=== PATIENT | male | born 1935 | race Caucasian/White ===

== ENCOUNTER 2019-11-17 05:42 | Outpatient (CLI) | payer MEDICARE, SELFPAY ==
[2019-11-17 15:31] LABS: SARS-CoV-2 RNA PCR Negative
== END 2019-11-17 05:43 | disposition home or self-care (01) ==
LOC: ANHCOVIDDT 05:42
PROVIDERS: PCP Internal Medicine; Visit Provider Specialist
DX: Z01.818 Encounter for other preprocedural examination (principal); Z11.59 Encounter for screening for other viral diseases
CPT/HCPCS: 87635; C9803; U0003

== ENCOUNTER 2019-11-19 05:14 | Day surgery (SDC) | payer MEDICARE, SELFPAY ==
[2019-11-17 17:00] VITALS: BMI 30.2
[2019-11-19] VITALS (17 sets, daily range): BP systolic 125–169; BP diastolic 64–117; PULSE 65–81; RESP 15–18; TEMP 36.6–36.9; O2SAT 97–100; BMI 29.8
--- NOTE | ~2019-11-19 | XR_ITS ---
XR chest 1V portable DATE: 11/19/2019 12:18 INDICATION: Pacemaker insertion TECHNIQUE: Portable AP chest on 11/19/2019 at 1209 hours COMPARISON: None FINDINGS: Left-sided pacemaker device with leads overlying right atrium and right ventricle. There is no evidence of pneumothorax. No pulmonary infiltrate or consolidation, pleural effusion or pulmonary vascular congestion or pneumothorax. Heart size is within normal limits. Is aortic calcification. Postoperative change including sternal wire sutures. IMPRESSION: Left dual-lead pacemaker device placement; no pneumothorax Reviewed, dictated and finalized at location A.
--- NOTE | ~2019-11-19 | XR_ITS ---
EXAMINATION: XR chest 2V DATE: 11/20/2019 10:55 INDICATION: Pacer placement. TECHNIQUE: Frontal and lateral views of the chest were obtained. COMPARISON: Chest single view 11/19/2019 FINDINGS: There is no pneumonia, pleural effusion, or pneumothorax. The heart size is normal. There i s a prominent left paracardial fat pad. Median sternotomy wires and mediastinal surgical clips are se en, likely from prior coronary artery bypass grafting. There is a left chest wall pacer with leads in the right atrium and right ventricle. IMPRESSION: 1. No acute cardiopulmonary disease. Reviewed, dictated and finalized at location A.
--- NOTE | 2019-11-19 08:00 | ECG_ITS ---
Measurements Intervals [place] Rate: 66 P: 45 [place]: 203 QRS: 15 QRSD: 88 T: -11 QT: 425 QTc: 446 Interpretive Statements SINUS RHYTHM BORDERLINE AV CONDUCTION DELAY CONSIDER INFERIOR INFARCT, AGE INDETERMINATE BORDERLINE ST ABNORMALITY- LATERAL LEADS ABNORMAL ECG Electronically Signed On 11-19-2019 11:38:31 CDT by Lito Solorzano D.O.
[2019-11-19 09:04] LABS: Basophils Percent Auto 0.5 % (0.2-1.2); Eosinophils Absolute Auto 0.5 K/mm3 (0-0.3); Eosinophils Percent Auto 7.4 % (0-4.4); Hematocrit 40.2 % (42.0-52.0); Hemoglobin 12.3 g/dL (14.0-18.0); Immature Granulocyte Absolute 0.03 K/mm3 (0.00-0.031); Immature Granulocyte Percent A 0.5 % (0-0.5); Lymphocytes Percent Auto 16.1 % (18.3-44.2); Mean Corpuscular HGB Conc 30.6 g/dl (32-36); Mean Corpuscular Hemoglobin 27.5 pg (26-34); Mean Corpuscular Volume 89.9 fl (80-100); Mean Platelet Volume 8.7 fl (7.4-10.4); Monocytes Absolute Auto 0.8 K/mm3 (0.1-0.6); Monocytes Percent Auto 12.1 % (2.6-8.5); Neutrophils Percent Auto 63.4 % (45.5-73.1); Platelet Count Result 263 k/mm3 (150-375); Red Blood Count 4.47 M/mm3 (4.6-6.20); Red Cell Distribution Width 17.5 % (11.5-14.5); White Blood Count 6.2 K/mm3 (4.5-10.0)
[2019-11-19 09:13] LABS: INR 0.9
[2019-11-19 09:15] LABS: Blood Urea Nitrogen 34 mg/dL (9-20); Calcium 9.5 mg/dL (8.4-10.2); Carbon Dioxide 24 mmol/L (22-30); Chloride 107 mmol/L (98-107); Estimated CRCL calculation 26 ml/min; Estimated Glomerular Filt Rate 26; Glucose 121 mg/dL (75-110); Potassium 4.6 mmol/L (3.4-5.0); Sodium 142 mmol/L (137-145)
--- NOTE | 2019-11-19 09:33 | WPDMODSED ---
Moderate Sedation Note-Pt Data Patient Data Diagnosis: Second-degree AV block Coronary artery disease recent CABG Present Complaint: No complaints Procedure to be performed/Plan: This is an 83-year-old patient with a history of coronary disease who underwent coronary bypass grafting for revascularization in August of this year. He did have some postop atrial fibrillation which was resolved after treatment with amiodarone. To follow up on this as an outpatient a 48 hour Holter monitor was done which demonstrated evidence of episodes of second-degree AV block Mobitz type 2 with asystolic pauses of as high as 3.3 seconds. Because of this implantation of a pacemaker device was recommended. Patient is admitted today electively for that procedure Allergies Allergy/AdvReac Type Severity Reaction Status Date / Time No Known Allergies Allergy Verified 11/17/19 17:03 Home Medications Medication Instructions Recorded Confirmed Type allopurinol 300 mg tablet 300 mg PO DAILY 05/20/19 11/17/19 History levothyroxine 50 mcg tablet 50 mcg PO DAILY 05/20/19 11/17/19 History losartan 100 mg tablet 100 mg PO DAILY 05/20/19 11/17/19 History omega-3 1,050 [id number]-drm-[id number]-dpa-fish 1 cap PO DAILY 05/20/19 11/17/19 History oil 1,200 mg capsule rosuvastatin 5 mg tablet 10 mg PO DAILY 05/20/19 11/17/19 History amlodipine 10 mg PO DAILY 11/17/19 11/17/19 History aspirin 81 mg PO DAILY 11/17/19 11/17/19 History metoprolol tartrate 75 mg PO BID 11/17/19 11/17/19 History tramadol 50 mg PO Q6H PRN 11/17/19 11/17/19 History vitamins A,C,T-vdva-wctcqc 2 tablet PO BID 11/17/19 11/17/19 History [[employer] AREDS] Current Medications: Active Medications Cefazolin Sodium (Ancef 1 Gm/D5w 50 Ml Pm) 1 gm in 50 mls @ 100 mls/hr IVPB ONCE ONE Stop: 11/19/19 09:59 Sedation/Anesthesia: No previous sedation/anesthesia problems (including family history). [facility] Past Medical History Medical History (System 06/03/19 @ 16:34 by Maria Del Carmen Sewell) Gout High cholesterol History of stroke History of TIA (transient ischemic attack) Hypertension Surgical History Surgical History (System 06/03/19 @ 16:34 by Maria Del Carmen Sewell) History of cataract surgery History of hip replacement History of pterygium excision Social History Social History (System 06/03/19 @ 16:34 by Maria Del Carmen Sewell) Gender identity (if verbalized by the patient): Male Mod Sed Physical Exam Physical Exam Pre Procedural Exam: Normal: Appearance, Nose, Neck, Throat, Airway, Lungs, Heart Size, Heart Rate, Heart Rhythm, Neuro Exam and Extremities Hours since solid foods: 12 Hours since liquid intake: 12 Internal Medicine - PN: Obj Da Vital Signs Vital Signs: Vital Signs - 24 hr 11/19/19 09:00 Temperature 36.6 C Pulse Rate 65 Respiratory Rate 15 Blood Pressure 166/67 H Pulse Oximetry 99 Meds/Results Medications: Active Medications Generic Name Dose Route Start Last Admin Trade Name Freq PRN Reason Stop Dose Admin Cefazolin Sodium 1 gm in 50 mls @ 100 mls/hr 11/19/19 09:30 Ancef 1 Gm/D5w 50 Ml Pm IVPB 11/19/19 09:59 ONCE ONE Labs CBC & Chem 7: 11/19/19 08:56 11/19/19 08:56 Labs: Laboratory Results - last 24 hr 11/19/19 11/19/19 11/19/19 08:56 08:56 08:56 WBC 6.2 RBC 4.47 L Hgb 12.3 L D Hct 40.2 L MCV 89.9 MCH 27.5 MCHC 30.6 L RDW 17.5 H Plt Count 263 MPV 8.7 Immature Gran % (Auto) 0.5 Neut % (Auto) 63.4 Lymph % (Auto) 16.1 L [place] % (Auto) 12.1 H Eos % (Auto) 7.4 H Baso % (Auto) 0.5 Lymph # (Auto) 1.00 [place] # (Auto) 0.8 H Eos # (Auto) 0.5 H Baso # (Auto) 0.0 Abs Immat Gran (auto) 0.03 Absolute Neuts (auto) 4.0 Absolute Nucleated RBC 0.0 Nucleated RBC % 0.0 PT 12.0 INR 0.9 Sodium 142 Potassium 4.6 Chloride 107 Carbon Dioxide 24 BUN 34 H Creatinine 2.40 H Estim Creat Clear Calc 26 E
--- NOTE | 2019-11-19 09:39 | SUR.PREOP ---
DR. SUMMERS AT BEDSIDE SPEAKING TO PT.
--- NOTE | 2019-11-19 11:41 | ECG_ITS ---
Measurements Intervals [place] Rate: 68 P: 54 [place]: 215 QRS: 19 QRSD: 90 T: 5 QT: 414 QTc: 441 Interpretive Statements SINUS RHYTHM WITH FIRST DEGREE AV BLOCK CONSIDER INFERIOR INFARCT, AGE INDETERMINATE BORDERLINE ST ABNORMALITY- LATERAL LEADS ABNORMAL ECG Electronically Signed On 11-19-2019 12:33:55 CDT by Lito Solorzano D.O.
--- NOTE | 2019-11-19 11:45 | WPDCARDPROC ---
Cardiac Cath Procedure Note Date of procedure:: 11/19/19 Performing physician:: Amadeo Cat MD Indication:: second-degree AV block with asystolic pauses of greater than 2nd Brief clinical history:: this is an 83-year-old patient with coronary artery disease who underwent surgical revascularization in August. A Holter monitor was done recently to provide follow-up on a history of postop AFib. There was no atrial fib but there was evidence second-degree AV block with asystolic pauses of up to 3.3 seconds. Procedure Procedure performed:: Implantation of permanent pacemaker device Sedation/Medication given:: fentanyl 100 mg Versed 2 mg case start time 1025 case end time 11:31 a.m. Access site:: left subclavian vein Estimated blood loss:: 15-20 cc Procedure note:: patient was brought to the cardiac catheterization lab in the postabsorptive state the left anterior chest wall was prepped and draped in the usual fashion. Anesthesia was provided with 1% lidocaine inferior to the clavicle. An incision was then made about an inch below the clavicle from the midclavicular line to the deltopectoral groove. Using sharp and blunt dissection the subcutaneous tissue was and electrocautery was used to provide cutaneous hemostasis. Using blunt dissection a pacemaker pocket was created along the fascial plane inferior to the incision. This was then packed with an antibiotic soaked 4 x 4. Following this attention was turned to venous access. Despite multiple attempts the left subclavian vein was not successfully punctured and so I performed a venogram from the left antecubital vein IV to determine venous location. Following this the vein was punctured and guidewires were placed into the venous circulation and under fluoroscopic visualization to the level the right atrium. Following this two pacemaker SafeSheath were used to access the vein over each wire and then the pacemaker leads detailed below were advanced into the venous circulation to the level of the atrium the safe sheaths were then peeled back. Attention was then turned to the ventricular lead straight stylet was withdrawn and a 3 cc syringe was used to fashion a J stylet tip which was used to steer the lead through the RV into the pulmonary artery position. This was then replaced with a straight stylet lead was withdrawn and placed into the right ventricular apical position. The fixation screw was deployed and the lead was then tested using analyzer with appropriate pacing and sensing perform is being demonstrated. A 10 volts stimulation showed no evidence of extracardiac stimulation. Following this attention was turned to the atrial lead. The straight stylet was withdrawn and replaced with a preformed J tipped stylet. This was placed into the right atrial appendage position. The this a fixation screw was then deployed and upon withdrawal of the stylet lead was fixed into position. This lead was then tested using the analyzer with appropriate pacing and sensing performance being demonstrated. Ten a 10 volts stimulus also showed no sign of extracardiac stimulation. Following this the sheaths were sutured to the base of the pocket using the suture sleeves and 2 0 silk ties. The retained sponge was removed from the pocket and the pocket was irrigated with antibiotic infused saline. The pacemaker device was then connected to the leads and secured using the supplied torque wrench. Following this the entire assembly was placed into the pocket and this was then closed in layers using 3 0 Vicryl in interrupted fashion for the subcutaneous tissue in 4 0 Vicryl in a running subcuticular fashion for the skin. The wound was dressed with an Aquacel dressing. The patient was taken to the holding area for recovery the left arm was placed in an immobilizer. Postop antibiotics chest x-ray and ECG were ordered. Findings:: Patient received a [employer] dual-chamber pacemaker model Edora 8 -Gabby ser
--- NOTE | 2019-11-19 11:50 | SUR.PHASEII ---
BEGIN PHASE II RECOVERY. RETURNS S/P DC PPM INSERTION L. UPPER CHEST W/ DR. SUMMERS VIA STRETCHER TO DREDGE OPERATOR 6. AWAKE AND ALERT ON ARRIVAL. DENIES CP OR SOB. MONITOR SHOWS A-PACED/SR. L. UPPER CHEST W/ C/D/I AQUACELL DRESSING. NO BLEEDING, SWELLING OR REDNESS NOTED. REVIEWED L. ARM MOVEMENT RESTRICTIONS S/P PPM AND BEDREST ORDERED X 24 HRS. URINAL GIVEN TO VOID. POST PROCEDURE EKG IN PROGRESS. WILL CONTINUE TO MONITOR.
--- NOTE | 2019-11-19 12:50 | SUR.PHASEII ---
POST PPM PCXR COMPLETED. NO NEW CHANGES. DRESSING L. UPPER CHEST REMAINS C/D/I. SLING APPLIED TO L. ARM TO SUPPORT ARM. L. RADIAL PULSE WEAK, L. ULNAR PULSE STRONG. REPORTS HAS HAD NUMBNESS IN LAST 2 FINGERS ON L. HAND POST CABG IN AUG 2019. REPORTS SENSATION, PULSES AND MOVEMENT L. HAND IS HIS NORMAL POST CABG. END PHASE II. SEE PCS FOR FURTHER DOCUMENTATION. PT. TO ENTER EXTENDED RECOVERY POST OUTPT. PROCEDURE PER ORDER FROM DR. SUMMERS.
--- NOTE | 2019-11-19 12:51 | ADMGEN ---
This patient, Jame Ward Jr., was admitted to EXTENDED RECOVERY POST OUTPATIENT PPM INSERTION [facility]. REMAINS IN CHIEF SUSTAINABILITY OFFICER 6 S/P PPM INSERTION. Patient/family oriented to hospital policies and general routines including ID bracelet, bed and alarms, visiting hours, pain management, procedures, bathroom and other care routines, personal items, smoking policy, room service/diet, and visiting hours. Information on how to activate the Rapid Response Team has been discussed. Patient/Family are encouraged to report perceived risks to care and to ask questions if they do not understand what they are told or what they should do.
[2019-11-19] MEDS: SODIUM CHLORIDE 0.9% IV 1,000 ML 50 ML IV CONT (17:51)
[2019-11-19] MEDS: OPTI-GEN TAB 2 TABLET PO (18:37)
[2019-11-19] MEDS: METOPROLOL TARTRATE 25 MG TABLET 75 MG PO (20:12)
[2019-11-20] VITALS (7 sets, daily range): BP systolic 154–178; BP diastolic 76–89; PULSE 70–77; RESP 14; O2SAT 100
[2019-11-20] MEDS: AMLODIPINE BESYLATE 5 MG TABLET 10 MG PO (06:46)
[2019-11-20] MEDS: OPTI-GEN TAB 2 TABLET PO (06:46)
[2019-11-20] MEDS: METOPROLOL TARTRATE 25 MG TABLET 75 MG PO (06:46)
[2019-11-20] MEDS: ROSUVASTATIN 5 MG TABLET 10 MG PO (06:46)
[2019-11-20] MEDS: LOSARTAN POTASSIUM 100 MG TABLET PO (06:47)
[2019-11-20] MEDS: ASPIRIN 81 MG CHEWABLE TABLET PO (06:47)
[2019-11-20] MEDS: OMEGA 3 POLYUNSAT FATTY ACIDS 1 GM CAP PO (06:47)
[2019-11-20] MEDS: allopurinoL 300 MG TABLET PO (06:47)
[2019-11-20] MEDS: LEVOTHYROXINE SODIUM 50 MCG TABLET PO (06:47)
--- NOTE | 2019-11-20 12:51 | PC.NURSE ---
1150-PT GIVEN D/C ORDERS AND INSTRUCTIONS. QUESTIONS ANSWERED AND VERBALIZED UNDERSTANDING. AOX4. PIV REMOVED. PT WILL WAIT FOR RIDE IN ROOM.
--- NOTE | 2019-11-20 16:01 | PM.DS ---
DS: Diagnosis Discharge Diagnosis (1) Second degree heart block: Code(s): I44.1 - Atrioventricular block, second degree Status: Acute Assessment and Plan: Second-degree AV block with asystolic pauses of up to 3.3 seconds status post Biotronik dual-chamber pacemaker 11/19/2019. Denied chest discomfort, shortness of breath, lightheadedness or palpitations. (2) Pacemaker: Code(s): Z95.0 - Presence of cardiac pacemaker Status: Acute Assessment and Plan: Pacemaker as above. DS: Summary Hospital Course Reason for hospitalization: Pacemaker implantation Hospital Course: 83-year-old patient with coronary artery disease who underwent surgical revascularization in August. A Holter monitor was done recently to provide follow-up on a history of postop AFib. There was no atrial fib but there was evidence of second-degree heart block with pauses up to 3.3 seconds. Pacemaker implantation was recommended. Biotronik dual-chamber pacemaker was placed by Dr. Cat on 11/19/2019. Postop chest x-ray revealed no pneumothorax. He was monitored overnight. Pacemaker interrogation on the morning of discharge revealed normally functioning device. Chest x-ray revealed no pneumothorax. He was discharged home in stable condition. Status at Discharge Functional status at discharge: independent ambulation Overall status at discharge: patient is back to baseline Time Spent with Patient Time attestation: Total time spent providing and/or coordinating discharge services: Time spent: Greater than 30 minutes Specific discharge activities: Reviewed activity restrictions and follow-up appointments. Time to complete discharge summary as well as discharge orders. All questions were answered to his satisfaction. Exam Narrative: Exam Narrative: General: Well-developed well-nourished male in no distress. HEENT: Mucous membranes moist and pink, Nares patent, sclera clear, No: epistaxis Neck: Supple Respiratory: Clear to Auscultation, Normal Air Movement, Respirations even and nonlabored Cardiovascular: Regular Rate, Regular Rhythm, No murmurs, clicks or rubs Left subclavian Aquacel dressing intact. No drainage. No swelling or ecchymosis. Abdominal: Abdomen Soft, Bowel sounds positive Extremities: Normal Pulses, No Edema Integumentary: No Abnormalities Musculoskeletal: No obvious joint deformities Neurological: Normal Speech Psychological: Mental Status normal, Mood normal Discharge Plan Discharge Patient Disposition: Home, Self-Care Discharge Instructions: ACTIVITY: No driving until you are seen in the office for your incision check. No lifting, pushing or pulling more than 5 pounds with left arm for 1 MONTH No lifting left arm above shoulder height for 1 MONTH Wear immobilizer only if you are unable to remember the above activity restrictions. Recommend that it be worn at night. You may shower AFTER you are seen for incision check on November 26 but no tub baths, swimming pool or hot tub for 1MONTH FOLLOW-UP: Follow up with [facility], [place] office at [facility] [address] to have dressing removed, incision checked and pacemaker checked on November 27, 2019 at 10:45 a.m.. Please arrive by 10:30 a.m. for your appointment. Bring photo ID and insurance card. with Samara Elias in the [facility] on December 24, 2019 at 10:30 a.m.. Please arrive by 10:15 a.m. for your appointment. Bring photo ID and insurance card. with Dr. Castro on February 23, 2020 at 9:30 a.m.. Please arrive by 9:15 a.m. for your appointment. Bring photo ID, insurance card(s) and current medication list. WOUND CARE: Do not attempt to remove dressing. There is a certain technique to removing this dressing. Keep dressing dry When you are able to shower AFTER you are seen for your incision check in the office do not ru
== END 2019-11-20 11:50 | disposition home or self-care (01) ==
LOC: ANHCATHLAB 08:10 → ANHCPC 17:23
PROVIDERS: PCP Internal Medicine; Visit Provider Specialist
PROC: 0JH606Z Insertion of Pacemaker, Dual Chamber into Chest Subcutaneous Tissue and Fascia, Open Approach (ICD-10-PCS; CPT 33208; principal; 2019-11-19 10:00)
DX: I44.1 Atrioventricular block, second degree (principal); I25.10 Atherosclerotic heart disease of native coronary artery without angina pectoris; Z95.1 Presence of aortocoronary bypass graft; Z79.82 Long term (current) use of aspirin; I10 Essential (primary) hypertension; E78.00 Pure hypercholesterolemia, unspecified; M10.9 Gout, unspecified; Z86.73 Personal history of transient ischemic attack (TIA), and cerebral infarction without residual deficits
CPT/HCPCS: 33208; 36415; 71045; 71046; 80048; 85025; 85610; 93005; A9270; C1779; C1785; J0690; J2250; J3010; J7030; J7040

== ENCOUNTER 2022-05-16 11:05 | Inpatient (IN) | payer MEDICARE, SELFPAY ==
[2022-05-16] VITALS (41 sets, daily range): BP systolic 104–143; BP diastolic 48–100; PULSE 72–89; RESP 12–25; TEMP 36.2–36.7; O2SAT 97–100; BMI 30.9
--- NOTE | ~2022-05-16 | XR_ITS ---
EXAMINATION: XR chest 2V DATE: 05/16/2022 11:53 INDICATION: Shortness of breath TECHNIQUE: AP and lateral views of the chest are obtained. COMPARISON: 11/20/2019 FINDINGS: There are small pleural effusions. No pneumothorax is identified. There are minimal airspac e opacities of the lung bases. The heart size is normal. Median sternotomy wires and mediastinal surg ical clips are seen, likely from prior coronary artery bypass grafting. A dual-lead cardiac pacemaker of the left chest wall ends with leads in expected locations. There is moderate thoracic spondylosis . IMPRESSION: 1. Small pleural effusions. 2. Bibasilar airspace opacities, consistent with atelectasis versus pneumonia. Reviewed, dictated and finalized at location B. DOCUMENTATION
--- NOTE | ~2022-05-16 | CT_ITS ---
EXAMINATION: CT abdomen pelvis wo con DATE: 05/16/2022 16:51 INDICATION: Anemia. Low back pain. TECHNIQUE: Computed tomography (CT) of the abdomen and pelvis was performed without intravenous contr ast. Automated exposure control and iterative reconstruction technique were employed. The dose-length product was 1211.59 mGy-cm. COMPARISON: CT abdomen and pelvis 02/18/2010 FINDINGS: The visualized portions of the lung bases demonstrate mild atelectasis and small pleural ef fusions, left worse than right. The heart size is normal. No pericardial effusion. There are coronary artery calcifications. There is a left chest wall pacer with leads in the right atrium and right kar tricle. Median sternotomy wires are noted. The liver is normal. Calcifications in the spleen are cons istent with old granulomatous disease. The gallbladder is normal in size. The pancreas and adrenal gl ands are normal. There is chronic fat stranding at the root of the small bowel mesentery. There is mo derate atrophy of right kidney and mild atrophy of left kidney. There is a parenchymal calcification in right kidney. There is no urolithiasis. The bladder is distended. The prostate is mildly enlarged. There is fat stranding in the retroperitoneum bilaterally including adjacent to the third portion of the duodenum. There is diverticulosis of the colon without evidence of diverticulitis. There are no dilated loops of bowel. The appendix is normal. There is a total left hip arthroplasty. There is arlin re right hip osteoarthritis. There is severe thoracic and lumbar spondylosis. IMPRESSION: 1. Small pleural effusions. 2. Fat stranding in the retroperitoneum, which may be edema or inflammation. Reviewed, dictated and finalized at location A. KNITTER
--- NOTE | 2022-05-16 11:10 | ECG_ITS ---
Measurements Intervals [place] Rate: 77 P: 180 OR: 248 QRS: 38 QRSD: 99 T: 6 QT: 411 QTc: 465 Interpretive Statements ELECTRONIC ATRIAL PACEMAKER BORDERLINE ST-T WAVE ABNORMALITY- INF/LAT LEADS BASELINE WANDER- III, V3, V5-V6 BORDERLINE ECG COMPARED TO ECG 11/19/2019 12:02:11 ELECTRONIC ATRIAL PACEMAKER NOW PRESENT Electronically Signed On 05-16-2022 11:34:34 ORNAMENTAL RAIL INSTALLER by Lito Solorzano D.O.
--- NOTE | 2022-05-16 12:04 | ED.SOB ---
HPI - SOB/Dyspnea General Chief Complaint: Shortness of Breath/Dyspnea Stated Complaint: sob Time Seen by Provider: 05/16/22 12:03 History of Present Illness HPI Narrative: Patient is an 86-year-old male with a history of CAD status post CABG, hypertension, hyperlipidemia, A. fib status post pacemaker presenting with shortness of breath. Patient states over the last several weeks he has had increasingly severe shortness of breath especially with exertion. Patient states that for the last few days he has had difficulty completing his ADLs due to the shortness of breath. He denies any pain. No chest pain, abdominal pain. He states that he does have episodes of lightheadedness especially when standing up and reaching up for things. States that he has been constipated but he has been using Metamucil and was able to have a normal bowel movement yesterday. He denies headache, numbness or weakness, vision changes, fevers or chills, cough, palpitations, nausea or vomiting, diarrhea, melena, hematochezia, hematemesis, dysuria, leg swelling. Patient is on Eliquis due to A. fib. Related Data Home Medications Medication Instructions Recorded Confirmed allopurinol 300 mg tablet 300 mg PO DAILY 05/20/19 05/16/22 levothyroxine 50 mcg tablet 50 mcg PO DAILY 05/20/19 05/16/22 losartan 100 mg tablet 100 mg PO DAILY 05/20/19 05/16/22 omega-3 1,050 db-tre-sgb-dpa-[id number] 1 cap PO DAILY 05/20/19 05/16/22 oil 1,200 mg capsule rosuvastatin 5 mg tablet 10 mg PO DAILY 05/20/19 05/16/22 amlodipine 10 mg tablet 10 mg PO DAILY 11/17/19 05/16/22 aspirin 81 mg chewable tablet 81 mg PO DAILY 11/17/19 05/16/22 metoprolol tartrate 25 mg tablet 75 mg PO BID 11/17/19 05/16/22 tramadol 50 mg tablet 50 mg PO Q6H PRN Pain 11/17/19 05/16/22 vitamins A,C,I-ojjb-xhqkba 2,148 2 tablet PO BID 11/17/19 05/16/22 mcg-113 mg-45 mg-17.4 mg tablet (PreserVision AREDS) acetaminophen 500 mg tablet 500 mg PO Q6H PRN Pain 12/14/21 05/16/22 (Tylenol Extra Strength) apixaban 2.5 mg tablet (Eliquis) 2.5 mg PO BID 12/14/21 05/16/22 finasteride 5 mg tablet 5 mg PO DAILY 12/14/21 05/16/22 calcium carbonate 600 mg calcium 600 mg PO DAILY 02/15/22 05/16/22 (1,500 mg) tablet Allergies Allergy/AdvReac Type Severity Reaction Status Date / Time No Known Allergies Allergy Verified 05/18/22 10:59 Review of Systems Review of Systems: All systems reviewed & are unremarkable except as noted in HPI and below PMFSH Past Medical History Medical History (Updated 05/25/22 @ 16:31 by Patrica Kamara MD) Acute blood loss anemia Blood thinned due to long-term anticoagulant use Chronic kidney disease, stage 4 (severe) Coronary artery disease Fracture of second metatarsal bone of left foot Gastric ulcer Gout Helicobacter positive gastritis High cholesterol History of stroke History of TIA (transient ischemic attack) Hypertension Obstructive sleep apnea on CPAP Osteoarthritis of both knees Paroxysmal atrial fibrillation Second degree heart block Status post permanent pacemaker insertion. Surgical History Surgical History (Updated 05/19/22 @ 13:51 by Yong Dsouza MD) History of cardiac pacemaker History of carotid endarterectomy (11/19/19) History of cataract surgery History of heart bypass surgery (08/28/19) History of hip replacement History of pterygium excision Family History Family History Father Heart disease Mother Lung cancer Social History Social History (Updated 05/16/22 @ 17:25 by Kristina Naranjo PA-C) Social History: Surrogate medical decision maker: Lizette Thomas, daughter. Code status: Full code. Smoking status: Former smoker Additional smoking assessment comments: Greater than 30 years ago. Alcohol intake: current Alcohol use details: Social alcohol use in moderation. Substance use: never Lack of Transportation: No Lack of Food: Never True Current Housing: [place]
[2022-05-16 12:07] LABS: Mean Corpuscular Hemoglobin 24.5 pg (26-34); Mean Corpuscular Volume 87.5 fl (80-100); Mean Platelet Volume 9.6 fl (7.4-10.4); Platelet Count Result 242 k/mm3 (150-375); Red Blood Count 2.08 M/mm3 (4.6-6.20); Red Cell Distribution Width 19.6 % (11.5-14.5); White Blood Count 5.5 K/mm3 (4.5-10.0)
[2022-05-16 12:09] LABS: Hematocrit 18.2 % (42.0-52.0); Hemoglobin 5.1 g/dL (14.0-18.0)
[2022-05-16 12:24] LABS: Band Neutrophils Percent 1 % (0-6); Eosinophils Absolute Manual 0.27 K/mm3 (0.02-0.5); Eosinophils Percent Manual 5 % (0-4); Lymphocytes Absolute Manual 0.82 K/mm3 (1.1-4.5); Monocytes Absolute Manual 0.05 K/mm3 (0.1-0.90); Monocytes Percent Manual 1 % (3-9); Neutrophils Absolute Manual 4.34 K/mm3 (1.3-6.7); Neutrophils Percent Manual 78 % (46-73); Platelet Estimate Adequate (Adequate); Total Cells Counted 100
[2022-05-16 12:25] LABS: Acanthocytes 1+ (NORMAL); Anisocytosis 1+ (NORMAL); Ovalocytes 2+ (NORMAL); Schistocytes None Seen (NORMAL); Tear Drop Cells 1+ (NORMAL)
[2022-05-16 12:57] LABS: Alanine Aminotransferase 14 U/L (6-50); Albumin Level 4.2 g/dL (3.5-5.1); Alkaline Phosphatase 59 U/L (38-126); Anion Gap 16 mmol/L (8-16); Aspartate Amino Transferase 19 U/L (17-59); Bilirubin,Total 0.3 mg/dL (0.2-1.3); Blood Urea Nitrogen 49 mg/dL (9-20); Calcium 7.6 mg/dL (8.4-10.2); Carbon Dioxide 19 mmol/L (22-30); Chloride 103 mmol/L (98-107); Estimated CRCL calculation 20 ml/min; Estimated Glomerular Filt Rate 21; Glucose 103 mg/dL (65-110); Potassium 5.8 mmol/L (3.4-5.0); Sodium 138 mmol/L (137-145)
[2022-05-16 12:58] LABS: INR 1.3; Prothrombin Time 15.5 Seconds (11.1-14.7)
[2022-05-16 13:05] LABS: NT Pro B Type Natriuretic Pept 2540 pg/mL (5-100)
[2022-05-16 13:10] LABS: Troponin I < 0.012 ng/mL (0.000-0.034)
[2022-05-16 13:22] LABS: Influenza A QL RT-PCR Negative (Negative); Influenza B QL RT-PCR Negative (Negative); SARS-CoV-2 RNA PCR Negative
[2022-05-16] MEDS: ALBUTEROL SULFATE NEB 2.5 MG/3 ML INH 5 MG INHALATION (13:50)
[2022-05-16] MEDS: INSULIN HUMAN REGULAR (*BKC) 100 UNITS/ML 10 UNITS IV PUSH (14:33)
[2022-05-16] MEDS: DEXTROSE 50% 25 GM/50 ML SYRINGE IV PUSH (14:33)
[2022-05-16] MEDS: FUROSEMIDE INJ 40 MG/4 ML VIAL 20 MG IV PUSH (14:33)
--- NOTE | 2022-05-16 15:14 | PC.NURSE ---
Per SHRUTHI Kamara, draw repeat blood work prior to starting blood transfusion.
[2022-05-16 15:40] LABS: Immature Reticulocyte Fraction 30.7 % (3.0-15.9); Reticulocyte Hemoglobin Conten 20.8 pg (28.2-35.7); Reticulocytes Absolute 0.09 B/L (32.2-175.7)
--- NOTE | 2022-05-16 15:44 | PC.NURSE ---
called lab at 15:44 to add on the BMP & MG.
[2022-05-16] MEDS: SODIUM CHLORIDE 0.9% IV 250 ML 30 ML IV CONT (15:51)
[2022-05-16] MEDS: TUBING, BLOOD PLUM PUMP TUBING 1 EACH XX (15:51)
[2022-05-16 15:55] LABS: Anion Gap 12 mmol/L (8-16); Blood Urea Nitrogen 50 mg/dL (9-20); Calcium 7.7 mg/dL (8.4-10.2); Carbon Dioxide 19 mmol/L (22-30); Chloride 107 mmol/L (98-107); Estimated CRCL calculation 23 ml/min; Estimated Glomerular Filt Rate 24; Glucose 105 mg/dL (65-110); Potassium 4.9 mmol/L (3.4-5.0); Sodium 138 mmol/L (137-145)
[2022-05-16 16:03] LABS: Troponin I < 0.012 ng/mL (0.000-0.034)
--- NOTE | 2022-05-16 16:15 | PM.IMHP ---
H&P: HPI History of Present Illness Date/Time: 05/16/22 16:15 Chief Complaint: Shortness of breath. Narrative: This is a very pleasant 86-year-old male with paroxysmal atrial fibrillation on chronic anticoagulation, coronary artery disease with history of bypass, chronic kidney disease stage 4, hypertension, hyperlipidemia, chronic anemia, and hypothyroidism who presented to the emergency department from home for evaluation of shortness of breath. He has developed increasing dyspnea on lesser and lesser exertion over the course of the past 3 weeks or so, and he is now getting short of breath with everyday activities. Additionally he has periods where he feels lightheaded and dizzy when going from seated to standing position or reaching for things. He has not had any recent change in medications and he has been eating and drinking as per usual. Workup in the emergency department was significant for hemoglobin and hematocrit of 5.1 and 18.2% respectively. With further questioning he does report that he has a history of chronic anemia though he has never had severe enough anemia to require blood transfusion. He has not noticed any dark stools or bright red blood in the stools though more recently he has felt a bit constipated which is unusual for him as he takes Metamucil twice a day in normally has good bowel movements each morning. Stool was Hemoccult negative on rectal exam per ED physician. He is on a baby aspirin and apixaban daily and he does not use NSAIDs. He has a peptic ulcer greater than 40 years ago. He has not had epigastric or abdominal discomfort, GERD symptoms, bloating, or belching. No melena or hematochezia. He has not noticed any blood in his urine and he denies any significant nose bleeds. He does mention that a couple of months ago he had issues with low back pain without trigger although that has since improved. He has not noticed any swelling or bruising around the mid to low back or abdomen. At this time he is stable and is getting ready to receive his 1st and of packed red blood cells. He has no current complaints. Review of Systems Review of Systems: Twelve systems were reviewed. He denies presyncope, syncope, cold and flu symptoms, fever, chills, sweats, chest pain, pleuritic pain, palpitations, orthopnea, lower extremity edema, nausea, vomiting, diarrhea. No dysuria or hematuria. Except as documented, all other systems were reviewed and are negative. [facility] Past Medical History Medical History (Updated 05/16/22 @ 17:28 by Kristina Naranjo PA-C) Chronic kidney disease, stage 4 (severe) Coronary artery disease Fracture of second metatarsal bone of left foot Gout High cholesterol History of stroke History of TIA (transient ischemic attack) Hypertension Obstructive sleep apnea on CPAP Osteoarthritis of both knees Paroxysmal atrial fibrillation Second degree heart block Status post permanent pacemaker insertion. Surgical History Surgical History (Updated 05/16/22 @ 17:24 by Kristina Naranjo PA-C) History of cardiac pacemaker History of carotid endarterectomy (11/19/19) History of cataract surgery History of heart bypass surgery (08/28/19) History of hip replacement History of pterygium excision Family History Family History Father Heart disease Mother Lung cancer Social History Social History (Updated 05/16/22 @ 17:25 by Kristina Naranjo PA-C) Social History: Surrogate medical decision maker: Lizette Thomas, daughter. Code status: Full code. Smoking status: Former smoker Additional smoking assessment comments: Greater than 30 years ago. Alcohol intake: current Alcohol use details: Social alcohol use in moderation. Substance use: never Additional living arrangements comments: The patient is as of 2020. He lives in his own home in [place]. Meds Home Medications and Allergies Home Medications Medication Instruc
[2022-05-16 16:43] LABS: Iron 35 ug/dL (49-181)
[2022-05-16 16:46] LABS: Percent Iron Saturation 9 % (20-50)
[2022-05-16 17:02] LABS: Folic Acid > 20.0 ng/mL (2.76->20)
--- NOTE | 2022-05-16 18:08 | ADMGEN ---
This patient, Jame Ward Jr., was admitted to Medical Room 261-01. Patient/family oriented to hospital policies and general routines including ID bracelet, bed and alarms, visiting hours, pain management, procedures, bathroom and other care routines, personal items, smoking policy, room service/diet, and visiting hours. Information on how to activate the Rapid Response Team has been discussed. Patient/Family are encouraged to report perceived risks to care and to ask questions if they do not understand what they are told or what they should do.
[2022-05-16] MEDS: SODIUM CHLORIDE 0.9% IV 250 ML 150 ML (22:50)
[2022-05-17] VITALS (18 sets, daily range): BP systolic 120–142; BP diastolic 55–62; PULSE 74–95; RESP 18–20; TEMP 36.3–36.7; O2SAT 93–98
[2022-05-17 03:06] LABS: Hematocrit 23.2 % (42.0-52.0)
[2022-05-17 03:31] LABS: Hemoglobin 7.1 g/dL (14.0-18.0)
[2022-05-17 06:03] LABS: Alanine Aminotransferase 12 U/L (6-50); Albumin Level 3.5 g/dL (3.5-5.1); Alkaline Phosphatase 52 U/L (38-126); Anion Gap 10 mmol/L (8-16); Aspartate Amino Transferase 17 U/L (17-59); Bilirubin,Total 0.6 mg/dL (0.2-1.3); Blood Urea Nitrogen 47 mg/dL (9-20); Calcium 7.5 mg/dL (8.4-10.2); Carbon Dioxide 18 mmol/L (22-30); Chloride 108 mmol/L (98-107); Estimated CRCL calculation 23 ml/min; Estimated Glomerular Filt Rate 24; Glucose 84 mg/dL (65-110); Magnesium 2.9 mg/dL (1.6-2.3); Potassium 4.8 mmol/L (3.4-5.0); Sodium 136 mmol/L (137-145)
[2022-05-17] MEDS: LEVOTHYROXINE SODIUM 50 MCG TABLET PO (06:12)
[2022-05-17 07:41] LABS: Mean Corpuscular HGB Conc 29.7 g/dl (32-36); Mean Corpuscular Hemoglobin 25.5 pg (26-34); Mean Corpuscular Volume 86.1 fl (80-100); Mean Platelet Volume 9.2 fl (7.4-10.4); Platelet Count Result 197 k/mm3 (150-375); Red Blood Count 2.74 M/mm3 (4.6-6.20); Red Cell Distribution Width 19.1 % (11.5-14.5); White Blood Count 5.7 K/mm3 (4.5-10.0)
[2022-05-17 08:11] LABS: Free T4 Free Thyroxine Reflex 1.05 ng/dL (0.78-2.19)
[2022-05-17] MEDS: METOPROLOL TARTRATE 25 MG TABLET 75 MG PO ×2 (09:40→21:09)
[2022-05-17] MEDS: LOSARTAN POTASSIUM 100 MG TABLET PO (09:40)
[2022-05-17] MEDS: amLODIPine BESYLATE 5 MG TABLET 10 MG PO (09:40)
[2022-05-17] MEDS: CALCIUM CARBONATE (OSCAL) 500 MG TABLET PO (09:42)
[2022-05-17] MEDS: OMEGA 3 POLYUNSAT FATTY ACIDS 1 GM CAP PO (09:42)
[2022-05-17] MEDS: ROSUVASTATIN 10 MG TABLET PO (09:42)
--- NOTE | 2022-05-17 09:42 | PM.IMPN ---
Progress Note: A&P Assessment and Plan (1) Symptomatic anemia: Code(s): D64.9 - Anemia, unspecified Status: Acute (2) Chronic kidney disease, stage 4 (severe): Code(s): N18.4 - Chronic kidney disease, stage 4 (severe) Status: Acute (3) Paroxysmal atrial fibrillation: Code(s): I48.0 - Paroxysmal atrial fibrillation Status: Acute (4) Hyperkalemia: Code(s): E87.5 - Hyperkalemia Status: Acute (5) Obstructive sleep apnea on CPAP: Code(s): G47.33 - Obstructive sleep apnea (adult) (pediatric); Z99.89 - Dependence on other enabling machines and devices Status: Acute (6) Hypertension: Code(s): I10 - Essential (primary) hypertension Status: Acute (7) Coronary artery disease: Code(s): I25.10 - Atherosclerotic heart disease of [place] coronary artery without angina pectoris Status: Acute Plan # progressive dyspnea no past few weeks found to be profoundly anemic with hemoglobin and hematocrit of 5.1. Chest x-ray with small pleural effusions and bilateral airspace opacities consistent with atelectasis versus pneumonia. He reports no respiratory symptoms. CT abdomen pelvis with small pleural effusions left more than right no pericardial effusion. After transfusion and correction of profound anemia his dyspnea has improved symptomatically. Influenza and COVID test negative # severe symptomatic anemia hemoglobin of 5.1 on admission. Transfuse 2 unit with appropriate rise to 7.1 today. Continue to monitor H&H. Transfuse p.r.n. to keep hemoglobin more than 7. Unclear etiology. FOBT negative in the ER on rectal exam. Next set of FOBT sent and is pending. Baseline hemoglobin unknown recently at least from the chart here. He does follow-up with master control technician and should have some blood test more recent than what is in the chart. Could potentially of anemia chronic disease related to to his chronic kidney disease however baseline level not known. Iron profile done suggestive of iron deficiency B12 folate normal TSH is normal. Replace iron. With check erythropoietin level. Reticulocyte count low suggestive of hypo proliferation. Will get GI and hematology consultation for further evaluation. Get previous levels from master control technician office. He is on anticoagulation and antiplatelet therapy with aspirin and apixaban which is currently on hold. # CKD stage 3 to 4 creatinine at baseline. Continue to monitor sees Dr. Whiteside outpatient bah # hypertension home medication # hyperlipidemia home medication # hypothyroidism home medication # BPH home medication # atrial fibrillation status post pacemaker implantation continue metoprolol currently in paced rhythm # SULAIMAN on CPAP # DVT prophylaxis SCDs # code status full code Subjective Date/time seen: 05/17/22 09:42 Interval history: HPI: This is a very pleasant 86-year-old male with paroxysmal atrial fibrillation on chronic anticoagulation, coronary artery disease with history of bypass, chronic kidney disease stage 4, hypertension, hyperlipidemia, chronic anemia, and hypothyroidism who presented to the emergency department from home for evaluation of shortness of breath. He has developed increasing dyspnea on lesser and lesser exertion over the course of the past 3 weeks or so, and he is now getting short of breath with everyday activities. Additionally he has periods where he feels lightheaded and dizzy when going from seated to standing position or reaching for things. He has not had any recent change in medications and he has been eating and drinking as per usual. Workup in the emergency department was significant for hemoglobin and hematocrit of 5.1 and 18.2% respectively. With further questioning he does report that he has a history of chronic anemia though he has never had severe enough anemia to require blood transfusion. He has not noticed any dark stools or bright red blood in the stools though more recently he has felt
[2022-05-17] MEDS: ASPIRIN 81 MG CHEWABLE TABLET PO (09:43)
[2022-05-17] MEDS: FINASTERIDE 5 MG TABLET PO (09:43)
[2022-05-17] MEDS: allopurinoL 300 MG TABLET PO (09:43)
[2022-05-17] MEDS: OPTI-GEN TAB 2 TABLET PO ×2 (09:43→17:19)
[2022-05-17 10:09] LABS: Hematocrit 26.6 % (42.0-52.0); Hemoglobin 8.2 g/dL (14.0-18.0)
[2022-05-17 10:18] LABS: IFOB Positive Control Positive; Immunochemical Fecal Occult Bl Positive (N)
[2022-05-17] MEDS: IRON SUCROSE COMPLEX 200 MG in SODIUM CHLORIDE 0.9% IV 50 ML 120 MG IVPB (10:53)
[2022-05-17 12:29] LABS: Lactate Dehydrogenase 195 U/L (120-246)
[2022-05-17 13:15] LABS: Total Triiodothyronine (T3) 1.02 NG/ML (0.97-1.69)
--- NOTE | 2022-05-17 14:15 | PC.NURSE ---
On 05/17/22, the student, [Pamela Maya], provided care and completed [facility] documentation on this patient. I have reviewed the student's documentation and agree with the findings.
[2022-05-17 16:30] LABS: Hematocrit 24.6 % (42.0-52.0); Hemoglobin 7.6 g/dL (14.0-18.0)
--- NOTE | 2022-05-17 16:32 | WPDGICN ---
Assessment and Plan Assessment and plan (1) Acute blood loss anemia: Code(s): D62 - Acute posthemorrhagic anemia Status: Acute Assessment and Plan: will assess with egd and colonoscopy tomorrow s/p blood transfusion trend h/h and monitor for signs of bleeding (2) Chronic kidney disease, stage 4 (severe): Code(s): N18.4 - Chronic kidney disease, stage 4 (severe) Status: Acute Assessment and Plan: wonder if probably also causing part of anemia, he also has been on eliquis (3) Paroxysmal atrial fibrillation: Code(s): I48.0 - Paroxysmal atrial fibrillation Status: Acute (4) Coronary artery disease: Code(s): I25.10 - Atherosclerotic heart disease of [place] coronary artery without angina pectoris Status: Acute (5) Blood thinned due to long-term anticoagulant use: Code(s): Z79.01 - residential (current) use of anticoagulants Status: Acute Assessment and Plan: on hold GI Consult Note Consult date/time: 05/17/22 16:32 Reason for consult: symptomatic anemia, FOBT + HPI: Jame Sheldon Justinelisandrajudith is a 86 year old male with paroxysmal atrial fibrillation on chronic anticoagulation with eliquis, coronary artery disease with history of bypass, chronic kidney disease stage 4, hypertension, hyperlipidemia, and hypothyroidism who presented to the emergency department from home because new onset of shortness of breath on exertion for last 3-4 days, also was feeling lightheaded and dizzy. He was found to have significant anemia with hemoglobin and hematocrit of 5.1 and 18.2% respectively. He is on a baby aspirin and apixaban daily and he does not use NSAIDs. He had peptic ulcer greater than 40 years ago, denies n/v, melena. Last colonoscopy about 5 years ago. FOBT +, he received blood transfusion. Review of Systems Constitutional: Constitutional: Reports fatigue and Reports lethargy Eyes: Eyes: Denies blurry vision ENT: Reports Normal hearing present Cardiovascular: Cardiovascular: Reports lightheadedness Respiratory: Respiratory: Reports dyspnea on exertion Gastrointestinal: Gastrointestinal: Denies abdominal pain Genitourinary: Genitourinary: Denies dysuria Musculoskeletal: Musculoskeletal: Denies back pain Integumentary/Breasts: Skin/Breast: Denies rash Neurologic: Denies Abnormal speech present Psychiatric: Psychiatric: Denies anxiety PMFSH Past Medical History Medical History (Updated 05/17/22 @ 16:35 by Luis M Ponce MD) Acute blood loss anemia Blood thinned due to long-term anticoagulant use Chronic kidney disease, stage 4 (severe) Coronary artery disease Fracture of second metatarsal bone of left foot Gout High cholesterol History of stroke History of TIA (transient ischemic attack) Hypertension Obstructive sleep apnea on CPAP Osteoarthritis of both knees Paroxysmal atrial fibrillation Second degree heart block Status post permanent pacemaker insertion. Surgical History Surgical History (Updated 05/16/22 @ 17:24 by Kristina Naranjo PA-C) History of cardiac pacemaker History of carotid endarterectomy (11/19/19) History of cataract surgery History of heart bypass surgery (08/28/19) History of hip replacement History of pterygium excision Family History Family History Father Heart disease Mother Lung cancer Social History Social History (Updated 05/16/22 @ 17:25 by Kristina Naranjo PA-C) Social History: Surrogate medical decision maker: Lizette Thomas, daughter. Code status: Full code. Smoking status: Former smoker Additional smoking assessment comments: Greater than 30 years ago. Alcohol intake: current Alcohol use details: Social alcohol use in moderation. Substance use: never Lack of Transportation: No Lack of Food: Never True Current Housing: I Have Housing Concerned About Future Housing: No Difficulty Paying [place]
[2022-05-17] MEDS: polyethylene glycoL 3350 238 GM BOTTLE PO (18:12)
[2022-05-17] MEDS: BISACODYL 5 MG TABLET EC 20 MG PO (18:14)
[2022-05-18] VITALS (16 sets, daily range): BP systolic 113–174; BP diastolic 55–72; PULSE 75–89; RESP 16–20; TEMP 36.4–36.8; O2SAT 92–100
[2022-05-18] MEDS: LEVOTHYROXINE SODIUM 50 MCG TABLET PO (06:12)
[2022-05-18 06:48] LABS: Alanine Aminotransferase 15 U/L (6-50); Albumin Level 3.7 g/dL (3.5-5.1); Alkaline Phosphatase 57 U/L (38-126); Anion Gap 12 mmol/L (8-16); Aspartate Amino Transferase 22 U/L (17-59); Bilirubin,Total 0.4 mg/dL (0.2-1.3); Blood Urea Nitrogen 37 mg/dL (9-20); Carbon Dioxide 20 mmol/L (22-30); Chloride 106 mmol/L (98-107); Estimated CRCL calculation 24 ml/min; Estimated Glomerular Filt Rate 25; Glucose 90 mg/dL (65-110); Magnesium 2.7 mg/dL (1.6-2.3); Potassium 4.4 mmol/L (3.4-5.0); Sodium 138 mmol/L (137-145)
[2022-05-18 06:56] LABS: Basophils Percent Auto 0.5 % (0.2-1.2); Eosinophils Absolute Auto 0.4 K/mm3 (0-0.3); Eosinophils Percent Auto 6.2 % (0-4.4); Hematocrit 26.7 % (42.0-52.0); Hemoglobin 7.9 g/dL (14.0-18.0); Immature Granulocyte Absolute 0.07 K/mm3 (0.00-0.031); Immature Granulocyte Percent A 1.2 % (0-0.5); Lymphocytes Absolute Auto 0.94 K/mm3 (0.9-3.2); Lymphocytes Percent Auto 15.7 % (18.3-44.2); Mean Corpuscular HGB Conc 29.6 g/dl (32-36); Mean Corpuscular Hemoglobin 25.8 pg (26-34); Mean Corpuscular Volume 87.3 fl (80-100); Mean Platelet Volume 9.2 fl (7.4-10.4); Monocytes Absolute Auto 1.2 K/mm3 (0.1-0.6); Monocytes Percent Auto 19.5 % (2.6-8.5); Neutrophils Absolute Auto 3.4 K/mm3 (1.3-6.7); Neutrophils Percent Auto 56.9 % (45.5-73.1); Nucleated Red Blood Cells Perc 0.5 % (0.0-0.2); Platelet Count Result 212 k/mm3 (150-375); Red Blood Count 3.06 M/mm3 (4.6-6.20); Red Cell Distribution Width 19.4 % (11.5-14.5)
[2022-05-18] MEDS: allopurinoL 300 MG TABLET PO (08:22)
[2022-05-18] MEDS: amLODIPine BESYLATE 5 MG TABLET 10 MG PO (08:22)
[2022-05-18] MEDS: CALCIUM CARBONATE (OSCAL) 500 MG TABLET PO (08:22)
[2022-05-18] MEDS: OMEGA 3 POLYUNSAT FATTY ACIDS 1 GM CAP PO (08:23)
[2022-05-18] MEDS: METOPROLOL TARTRATE 25 MG TABLET 75 MG PO ×2 (08:23→20:10)
[2022-05-18] MEDS: FINASTERIDE 5 MG TABLET PO (08:24)
[2022-05-18] MEDS: ROSUVASTATIN 10 MG TABLET PO (08:24)
[2022-05-18] MEDS: LOSARTAN POTASSIUM 100 MG TABLET PO (08:24)
[2022-05-18] MEDS: OPTI-GEN TAB 2 TABLET PO ×2 (08:24→17:55)
[2022-05-18] MEDS: ASPIRIN 81 MG CHEWABLE TABLET PO (08:24)
[2022-05-18] MEDS: LACTATED RINGERS 1,000 ML 150 ML IV CONT (11:03)
--- NOTE | 2022-05-18 11:28 | WPDANESEPPF ---
Anes - Initial Pre Proc Eval Procedure: Operation Date: 05/18/22 12:00 Proposed Procedures p Esophagogastroduodenoscopy & Colonoscopy - Luis M Ponce MD Date/Time: 05/18/22 11:28 Surgeon: Freddy Nunez MD Pre Op Diagnosis: Anemia Patient Data Age: 86 Gender: M Height: 1.78 m Weight: 100.1 kg Last Vital Signs Temp 97.7 F 05/18/22 11:01 Pulse 81 05/18/22 11:01 Resp 18 05/18/22 11:01 BP 174/72 H 05/18/22 11:01 Pulse Ox 99 05/18/22 11:01 O2 Del Method Room Air 05/18/22 11:01 Allergies Allergy/AdvReac Type Severity Reaction Status Date / Time No Known Allergies Allergy Verified 05/18/22 10:59 Home Medications Medication Instructions Recorded Confirmed Type allopurinol 300 mg tablet 300 mg PO DAILY 05/20/19 05/16/22 History levothyroxine 50 mcg tablet 50 mcg PO DAILY 05/20/19 05/16/22 History losartan 100 mg tablet 100 mg PO DAILY 05/20/19 05/16/22 History omega-3 1,050 [id number] 1 cap PO DAILY 05/20/19 05/16/22 History oil 1,200 mg capsule rosuvastatin 5 mg tablet 10 mg PO DAILY 05/20/19 05/16/22 History amlodipine 10 mg tablet 10 mg PO DAILY 11/17/19 05/16/22 History aspirin 81 mg chewable tablet 81 mg PO DAILY 11/17/19 05/16/22 History metoprolol tartrate 25 mg tablet 75 mg PO BID 11/17/19 05/16/22 History tramadol 50 mg tablet 50 mg PO Q6H PRN Pain 11/17/19 05/16/22 History vitamins A,C,R-jycs-fhucsj 2,148 2 tablet PO BID 11/17/19 05/16/22 History mcg-113 mg-45 mg-17.4 mg tablet (PreserVision AREDS) acetaminophen 500 mg tablet 500 mg PO Q6H PRN Pain 12/14/21 05/16/22 History (Tylenol Extra Strength) apixaban 2.5 mg tablet (Eliquis) 2.5 mg PO BID 12/14/21 05/16/22 History finasteride 5 mg tablet 5 mg PO DAILY 12/14/21 05/16/22 History calcium carbonate 600 mg calcium 600 mg PO DAILY 02/15/22 05/16/22 History (1,500 mg) tablet Laboratory Tests 05/17/22 05/17/22 05/17/22 05:02 05:02 16:07 WBC RBC Hgb 7.6 g/dL L g/dL (14.0-18.0) Hct 24.6 % L % (42.0-52.0) MCV MCH MCHC RDW Plt Count MPV Immature Gran % (Auto) Neut % (Auto) Lymph % (Auto) [place] % (Auto) Eos % (Auto) Baso % (Auto) Lymph # (Auto) [place] # (Auto) Eos # (Auto) Baso # (Auto) Abs Immat Gran (auto) Absolute Neuts (auto) Absolute Nucleated RBC Nucleated RBC % Sodium Potassium Chloride Carbon Dioxide Anion Gap BUN Creatinine Estim Creat Clear Calc Estimated GFR Glucose Calcium Magnesium Total Bilirubin AST ALT Alkaline Phosphatase Lactate Dehydrogenase 195 U/L U/L (120-246) Total Protein Albumin Total T3 1.02 NG/ML NG/ML (0.97-1.69) 05/18/22 05/18/22 05:10 05:10 WBC 6.0 K/mm3 K/mm3 (4.5-10.0) RBC 3.06 M/mm3 L M/mm3 (4.6-6.20) Hgb 7.9 g/dL L g/dL (14.0-18.0) Hct 26.7 % L % (42.0-52.0) MCV 87.3 fl fl (80-100) MCH 25.8 pg L pg (26-34) MCHC 29.6 g/dl L g/dl (32-36) RDW 19.4 % H % (11.5-14.5) Plt Count 212 k/mm3 k/mm3 (150-375) MPV 9.2 fl fl (7.4-10.4) Immature Gran % (Auto) 1.2 % H % (0-0.5) Neut % (Auto) 56.9 % % (45.5-73.1) Lymph % (Auto) 15.7 % L % (18.3-44.2) [place] % (Auto) 19.5 % H % (2.6-8.5) Eos % (Auto) 6.2 % H % (0-4.4) Baso % (Auto) 0.5 % % (0.2-1.2) Lymph # (Auto) 0.94 K/mm3 K/mm3 (0.9-3.2) [place] # (Auto) 1.2 K/mm3 H K/mm3 (0.1-0.6) Eos # (Auto) 0.4 K/mm3 H K/mm3
--- NOTE | 2022-05-18 12:28 | SUR.OPER ---
H. PYLORI POSITIVE. DR. ELIZABETH MAHAJAN.
--- NOTE | 2022-05-18 12:28 | SUR.OPER ---
EGD: [id number] COLON: [id number]
--- NOTE | 2022-05-18 14:31 | PC.NURSE ---
On 05/18/22, the student, [Yolanda Calderón], provided care and completed [facility] documentation on this patient. I have reviewed the student's documentation and agree with the findings.
--- NOTE | 2022-05-18 14:35 | PM.IMPN ---
Progress Note: A&P Assessment and Plan (1) Symptomatic anemia: Code(s): D64.9 - Anemia, unspecified Status: Acute Assessment and Plan: 05/18/2022: interval history: No overnight events. Shortness of breath has improved. Denies any chest pain or abdominal pain or nausea vomiting. Reports no bowel problem. today patient had a EGD it showed 2 ulcers but not bleeding, and colonoscopy showed diverticulosis but no source of bleeding, patient hemoglobin is stable will continue to monitor patient be seen by GI further recommendation to follow. (2) Chronic kidney disease, stage 4 (severe): Code(s): N18.4 - Chronic kidney disease, stage 4 (severe) Status: Acute Assessment and Plan: patient with acute on chronic kidney disease most likely secondary to poor p.o. intake will gently hydrate the patient and monitor (3) Paroxysmal atrial fibrillation: Code(s): I48.0 - Paroxysmal atrial fibrillation Status: Acute Assessment and Plan: rate is controlled patient is on Eliquis currently on hold due to bleeding will monitor, (4) Hyperkalemia: Code(s): E87.5 - Hyperkalemia Status: Acute Assessment and Plan: most likely secondary to dehydration will monitor (5) Obstructive sleep apnea on CPAP: Code(s): G47.33 - Obstructive sleep apnea (adult) (pediatric); Z99.89 - Dependence on other enabling machines and devices Status: Acute (6) Hypertension: Code(s): I10 - Essential (primary) hypertension Status: Acute (7) Coronary artery disease: Code(s): I25.10 - Atherosclerotic heart disease of [place] coronary artery without angina pectoris Status: Acute Plan # progressive dyspnea no past few weeks found to be profoundly anemic with hemoglobin and hematocrit of 5.1. Chest x-ray with small pleural effusions and bilateral airspace opacities consistent with atelectasis versus pneumonia. He reports no respiratory symptoms. CT abdomen pelvis with small pleural effusions left more than right no pericardial effusion. After transfusion and correction of profound anemia his dyspnea has improved symptomatically. Influenza and COVID test negative # severe symptomatic anemia hemoglobin of 5.1 on admission. Transfuse 2 unit with appropriate rise to 7.1 today. Continue to monitor H&H. Transfuse p.r.n. to keep hemoglobin more than 7. Unclear etiology. FOBT negative in the ER on rectal exam. Next set of FOBT sent and is pending. Baseline hemoglobin unknown recently at least from the chart here. He does follow-up with instructor psychiatric aide and should have some blood test more recent than what is in the chart. Could potentially of anemia chronic disease related to to his chronic kidney disease however baseline level not known. Iron profile done suggestive of iron deficiency B12 folate normal TSH is normal. Replace iron. With check erythropoietin level. Reticulocyte count low suggestive of hypo proliferation. Will get GI and hematology consultation for further evaluation. Get previous levels from instructor psychiatric aide office. He is on anticoagulation and antiplatelet therapy with aspirin and apixaban which is currently on hold. # CKD stage 3 to 4 creatinine at baseline. Continue to monitor sees Dr. Whiteside outpatient [place] # hypertension home medication # hyperlipidemia home medication # hypothyroidism home medication # BPH home medication # atrial fibrillation status post pacemaker implantation continue metoprolol currently in paced rhythm # SULAIMAN on CPAP # DVT prophylaxis SCDs # code status full code Subjective Date/time seen: 05/18/22 14:35 Interval history: HPI: This is a very pleasant 86-year-old male with paroxysmal atrial fibrillation on chronic anticoagulation, coronary artery disease with history of bypass, chronic kidney disease stage 4, hypertension, hyperlipidemia, chronic anemia, and hypothyroidism who presented to the emergency department from home for eval
[2022-05-18] MEDS: CLARITHROMYCIN 500 MG TABLET PO (20:06)
[2022-05-18] MEDS: PANTOPRAZOLE 40 MG TABLET PO (20:07)
[2022-05-18] MEDS: AMOXICILLIN 500 MG CAPSULE 1000 MG PO (20:07)
[2022-05-19] VITALS (10 sets, daily range): BP systolic 118–132; BP diastolic 55–67; PULSE 78–82; RESP 16–18; TEMP 36.8; O2SAT 98
[2022-05-19] MEDS: LEVOTHYROXINE SODIUM 50 MCG TABLET PO (05:37)
--- NOTE | 2022-05-19 07:30 | P.PNAN_ITS ---
Anes - Prog Note Post-Op Date/Time: 05/19/22 07:30 Cardiovascular status: normal Respiratory status: normal Airway patency: baseline Mental status: baseline Post-Op hydration status: normal Vital Signs: Last Vital Signs Temp 98.2 F 05/19/22 05:33 Pulse 81 05/19/22 05:33 Resp 16 05/19/22 05:33 BP 132/61 05/19/22 05:33 Pulse Ox 98 05/19/22 05:33 O2 Del Method Room Air 05/18/22 20:00 Pain Score (VAS): 0/10 I/O: Intake & Output 05/18/22 05/18/22 05/19/22 15:59 23:59 07:59 Intake Total 0 690 Balance 0 690 Laboratory Tests 05/18/22 05:10 05/18/22 05:10 05/18/22 05:10 WBC 6.0 RBC 3.06 L Hgb 7.9 L Hct 26.7 L MCV 87.3 MCH 25.8 L MCHC 29.6 L RDW 19.4 H Plt Count 212 MPV 9.2 Immature Gran % (Auto) 1.2 H Neut % (Auto) 56.9 Lymph % (Auto) 15.7 L [place] % (Auto) 19.5 H Eos % (Auto) 6.2 H Baso % (Auto) 0.5 Lymph # (Auto) 0.94 [place] # (Auto) 1.2 H Eos # (Auto) 0.4 H Baso # (Auto) 0.0 Abs Immat Gran (auto) 0.07 H Absolute Neuts (auto) 3.4 Absolute Nucleated RBC 0.0 Nucleated RBC % 0.5 H Post-procedural complaints: none Patient Feedback: Patient satisfied with anesthetic care.
[2022-05-19 08:36] LABS: Hematocrit 28.9 % (42.0-52.0); Hemoglobin 8.3 g/dL (14.0-18.0); Mean Corpuscular HGB Conc 28.7 g/dl (32-36); Mean Corpuscular Hemoglobin 25.1 pg (26-34); Mean Corpuscular Volume 87.3 fl (80-100); Mean Platelet Volume 9.2 fl (7.4-10.4); Platelet Count Result 226 k/mm3 (150-375); Red Blood Count 3.31 M/mm3 (4.6-6.20); Red Cell Distribution Width 19.2 % (11.5-14.5); White Blood Count 6.1 K/mm3 (4.5-10.0)
[2022-05-19 08:51] LABS: Anion Gap 13 mmol/L (8-16); Blood Urea Nitrogen 31 mg/dL (9-20); Calcium 8.2 mg/dL (8.4-10.2); Carbon Dioxide 21 mmol/L (22-30); Chloride 105 mmol/L (98-107); Estimated CRCL calculation 24 ml/min; Estimated Glomerular Filt Rate 25; Glucose 103 mg/dL (65-110); Magnesium 2.3 mg/dL (1.6-2.3); Potassium 4.8 mmol/L (3.4-5.0); Sodium 139 mmol/L (137-145)
[2022-05-19] MEDS: ROSUVASTATIN 10 MG TABLET PO (09:53)
[2022-05-19] MEDS: PANTOPRAZOLE 40 MG TABLET PO (09:53)
[2022-05-19] MEDS: OPTI-GEN TAB 2 TABLET PO (09:53)
[2022-05-19] MEDS: METOPROLOL TARTRATE 25 MG TABLET 75 MG PO (09:54)
[2022-05-19] MEDS: OMEGA 3 POLYUNSAT FATTY ACIDS 1 GM CAP PO (09:56)
[2022-05-19] MEDS: amLODIPine BESYLATE 5 MG TABLET 10 MG PO (09:56)
[2022-05-19] MEDS: ASPIRIN 81 MG CHEWABLE TABLET PO (09:56)
[2022-05-19] MEDS: AMOXICILLIN 500 MG CAPSULE 1000 MG PO (09:56)
[2022-05-19] MEDS: CALCIUM CARBONATE (OSCAL) 500 MG TABLET PO (09:57)
[2022-05-19] MEDS: LOSARTAN POTASSIUM 100 MG TABLET PO (09:57)
[2022-05-19] MEDS: FINASTERIDE 5 MG TABLET PO (09:57)
[2022-05-19] MEDS: allopurinoL 300 MG TABLET PO (09:57)
[2022-05-19] MEDS: CLARITHROMYCIN 500 MG TABLET PO (09:57)
--- NOTE | 2022-05-19 11:37 | WPDGIPROGNO ---
Progress Note: A&P Assessment and Plan (1) Gastric ulcer: Code(s): K25.9 - Gastric ulcer, unspecified as acute or chronic, without hemorrhage or perforation Status: Acute Assessment and Plan: it was cause of upper gib no signs of active bleeding also + h pylori and started on triple therapy including ppi no nsaid's hold blood thinner at least for 1 week no objections to discharge by gi standpoint (2) Helicobacter positive gastritis: Code(s): K29.70 - Gastritis, unspecified, without bleeding; B96.81 - Helicobacter pylori [H. pylori] as the cause of diseases classified elsewhere Status: Acute Assessment and Plan: started on treatment, will need total of 14 days (3) Acute blood loss anemia: Code(s): D62 - Acute posthemorrhagic anemia Status: Acute Assessment and Plan: hb low but stable can start also using iron supplement (4) Blood thinned due to long-term anticoagulant use: Code(s): Z79.01 - extermination supervisor (current) use of anticoagulants Status: Acute (5) Chronic kidney disease, stage 4 (severe): Code(s): N18.4 - Chronic kidney disease, stage 4 (severe) Status: Acute (6) Paroxysmal atrial fibrillation: Code(s): I48.0 - Paroxysmal atrial fibrillation Status: Acute Subjective Date/time seen: 05/19/22 11:37 Interval history: egd yesterday with gastric ulcer and also positive H pylori, colonoscopy without bleeding, several TA polyps removed. Review of Systems Review of Systems: All systems reviewed & are unremarkable except as noted in HPI and below Exam Const: General: comfortable and no acute distress HENMT: Face/Nose/Sinus: Normal nares present Eyes: General: appearance normal, both eyes and all related structures Neck: Neck: no JVD Resp: Auscultation: clear to auscultation bilaterally Cardio: Rate: regular rate Rhythm: regular rhythm GI: Inspection: non-distended GI Palp: Yes Soft to palpation and No Tenderness to palpation present (GI) Auscultation: normal bowel sounds Skin: General skin exam: normal color Neuro: Speech: normal speech Motor exam (neuro): 5/5 motor strength present throughout Extrem: General: normal to inspection Psych: Mental Status: mental status grossly normal Objective Data Vital Signs Vital Signs: Vital Signs - 24 hr 05/18/22 12:56 05/18/22 13:06 05/18/22 13:16 Temperature Pulse Rate 75 80 89 Respiratory Rate 20 18 19 Blood Pressure 113/71 132/70 135/68 Pulse Oximetry 92 95 100 Oxygen Delivery Room Air Room Air Room Air 05/18/22 14:00 05/18/22 19:20 05/18/22 19:22 Temperature 97.6 F Pulse Rate 82 Respiratory Rate 16 Blood Pressure 148/60 H 147/65 H 115/55 L Pulse Oximetry 100 Oxygen Delivery 05/18/22 20:10 05/18/22 19:25 05/18/22 20:00 Temperature Pulse Rate 88 Respiratory Rate Blood Pressure 133/56 L Pulse Oximetry Oxygen Delivery Room Air 05/18/22 20:00 05/18/22 21:46 05/19/22 00:00 Temperature 98.1 F Pulse Rate 79 80 78 Respiratory Rate 16 Blood Pressure 147/65 H Pulse Oximetry 98 Oxygen Delivery 05/19/22 04:00 05/19/22 05:33 05/19/22 08:00 Temperature 98.2 F Pulse Rate 79 81 Respiratory Rate 16 Blood Pressure 132/61 123/67 Pulse Oximetry 98 Oxygen Delivery 05/19/22 08:40 05/19/22 08:40 05/19/22 09:20 Temperature Pulse Rate Respiratory Rate 16 Blood Pressure 118/59 L 119/64 Pulse Oximetry 98 Oxygen Delivery Room Air 05/19/22 08:00 05/19/22 09:54 Temperature Pulse Rate 79 82 Respiratory Rate Blood Pressure Pulse Oximetry Oxygen Delivery Intake/Output Intake/Output: Intake & Output 05/16/22 05/17/22 05/18/22 05/19/22 23:59 23:59 23:59 23:59 Intake Total 693 1500 940 360 Output Total 400 500 Balance 293 1000 940 360 Meds/Results Medications: Active Medications Generic Name Dose Route Start Last Admin Trade Name Freq PRN
--- NOTE | 2022-05-19 13:47 | PDONCCN ---
HPI - Date of Consult Date/Time: 05/19/22 13:47 Requesting Physician: Freddy Nunez MD Primary Care Provider: Davidson Arellano, - Consult Narrative Reason for consult: Normocytic anemia Narrative: Jame Ward Jr. is a 86 year old male with history of atrial fibrillation on chronic anticoagulation therapy chronic kidney stage 4 disease, hypertension, hyperlipidemia and coronary artery disease came into the hospital with generalized weakness along with shortness of breath. Labs showed hemoglobin of 5.1. He denies any bleeding including melena hematochezia. Stool testing came back positive for blood. Patient had colonoscopy and EGD done on May 18. Colonoscopy showed internal hemorrhoids, colon polyps and diverticulosis without any bleeding. EGD showed gastric ulcer without any bleeding. Labs showed iron deficiency as well as renal insufficiency. He is feeling better after 2 units of blood transfusion. He denies any other complaints. Review of Systems - Review of Systems All systems reviewed & are unremarkable except as noted in HPI and bel - Neurologic Reports hearing normal, Denies abnormal speech [facility] Medical History: Medical History (Last Updated 05/19/22 @ 11:39 by Luis M Ponce MD) Acute blood loss anemia Blood thinned due to long-term anticoagulant use Chronic kidney disease, stage 4 (severe) Coronary artery disease Fracture of second metatarsal bone of left foot Gastric ulcer Gout Helicobacter positive gastritis High cholesterol History of stroke History of TIA (transient ischemic attack) Hypertension Obstructive sleep apnea on CPAP Osteoarthritis of both knees Paroxysmal atrial fibrillation Second degree heart block Status post permanent pacemaker insertion. Surgical History: Surgical History (Last Updated 05/16/22 @ 17:24 by Kristina Naranjo PA-C) History of cardiac pacemaker History of carotid endarterectomy Onset Date: 11/19/19 History of cataract surgery History of heart bypass surgery Onset Date: 08/28/19 History of hip replacement History of pterygium excision Family History: Family History (Last Reviewed 05/16/22 @ 17:24 by Kristina Naranjo PA-C) Father Heart disease Mother Lung cancer - Social History Social History: Social History (Last Updated 05/16/22 @ 17:25 by Kristina Naranjo PA-C) Alcohol Use: Alcohol intake: current Alcohol use details: Social alcohol use in moderation. Substance Use: Substance use: never Others: Spiritual care concerns: No Smoking Status: Smoking status: Former smoker Comments: Additional smoking assessment comments: Greater than 30 years ago. Social Determinants of Health: Has the Lack of Transportation Kept You From Medical Appointments or From Getting Medications?: No Within the Past 12 Months, Were You Worried Whether Your Food Would Run Out Before You Got Money to Buy More?: Never True What is Your Housing Situation Today?: I Have Housing Are You Worried That in the Next 2 Months, You May Not Have Your Own Housing to Live In?: No Do You Have Trouble Paying Your Heating Or Electricity Bill?: No Do You Have Trouble Paying For Medicines?: No Are You Currently Unemployed and Looking for Work?: No Highest Level of Education Completed: High School Diploma/GED Do You Have Trouble With Childcare or the Care of a Family Member?: No Exam - Vital Signs Vital Signs - 24 hr 05/18/22 14:00 05/18/22 19:20 05/18/22 19:22 Temperature 36.4 C Pulse Rate 82 Respiratory Rate 16 Blood Pressure 148/60 H 147/65 H 115/55 L Pulse Oximetry 100 Oxygen Delivery 05/18/22 20:10 05/18/22 19:25 05/18/22 20:00 Temperature Pulse Rate 88 Respiratory Rate Blood Pressure 133/56 L Pulse Oximetry Oxygen Delivery Room Air 05/18/22 20:00 05/18/22 21:46 05/19/22 00:00 Temperature 36.7 C Pulse Rate 7
--- NOTE | 2022-05-19 16:26 | PM.DS ---
DS: Admitting Diagnosis Discharge Date 05/19/2022 Admitting Diagnosis shortness of breath DS: Discharge Diagnosis Discharge Diagnosis (1) Symptomatic anemia: Code(s): D64.9 - Anemia, unspecified Status: Acute Assessment and Plan: 05/18/2022: interval history: No overnight events. Shortness of breath has improved. Denies any chest pain or abdominal pain or nausea vomiting. Reports no bowel problem. today patient had a EGD it showed 2 ulcers but not bleeding, and colonoscopy showed diverticulosis but no source of bleeding, patient hemoglobin is stable will continue to monitor patient be seen by GI further recommendation to follow. (2) Chronic kidney disease, stage 4 (severe): Code(s): N18.4 - Chronic kidney disease, stage 4 (severe) Status: Acute Assessment and Plan: patient with acute on chronic kidney disease most likely secondary to poor p.o. intake will gently hydrate the patient and monitor (3) Paroxysmal atrial fibrillation: Code(s): I48.0 - Paroxysmal atrial fibrillation Status: Acute Assessment and Plan: rate is controlled patient is on Eliquis currently on hold due to bleeding will monitor, (4) Hyperkalemia: Code(s): E87.5 - Hyperkalemia Status: Acute Assessment and Plan: most likely secondary to dehydration will monitor (5) Obstructive sleep apnea on CPAP: Code(s): G47.33 - Obstructive sleep apnea (adult) (pediatric); Z99.89 - Dependence on other enabling machines and devices Status: Acute (6) Hypertension: Code(s): I10 - Essential (primary) hypertension Status: Acute (7) Coronary artery disease: Code(s): I25.10 - Atherosclerotic heart disease of [place] coronary artery without angina pectoris Status: Acute Plan # progressive dyspnea no past few weeks found to be profoundly anemic with hemoglobin and hematocrit of 5.1. Chest x-ray with small pleural effusions and bilateral airspace opacities consistent with atelectasis versus pneumonia. He reports no respiratory symptoms. CT abdomen pelvis with small pleural effusions left more than right no pericardial effusion. After transfusion and correction of profound anemia his dyspnea has improved symptomatically. Influenza and COVID test negative # severe symptomatic anemia hemoglobin of 5.1 on admission. Transfuse 2 unit with appropriate rise to 7.1 today. Continue to monitor H&H. Transfuse p.r.n. to keep hemoglobin more than 7. Unclear etiology. FOBT negative in the ER on rectal exam. Next set of FOBT sent and is pending. Baseline hemoglobin unknown recently at least from the chart here. He does follow-up with retail seasonal specialist and should have some blood test more recent than what is in the chart. Could potentially of anemia chronic disease related to to his chronic kidney disease however baseline level not known. Iron profile done suggestive of iron deficiency B12 folate normal TSH is normal. Replace iron. With check erythropoietin level. Reticulocyte count low suggestive of hypo proliferation. Will get GI and hematology consultation for further evaluation. Get previous levels from retail seasonal specialist office. He is on anticoagulation and antiplatelet therapy with aspirin and apixaban which is currently on hold. # CKD stage 3 to 4 creatinine at baseline. Continue to monitor sees Dr. Whiteside outpatient [place] # hypertension home medication # hyperlipidemia home medication # hypothyroidism home medication # BPH home medication # atrial fibrillation status post pacemaker implantation continue metoprolol currently in paced rhythm # SULAIMAN on CPAP # DVT prophylaxis SCDs # code status full code DS: Summary Hospital Course Reason for hospitalization: Chief Complaint: Shortness of breath. Narrative: This is a very pleasant 86-year-old male with paroxysmal atrial fibrillation on chronic anticoagulation, coronary artery disease with history of bypass, chronic kidney dis
== END 2022-05-19 17:30 | disposition home or self-care (01) | DRG 378 ==
LOC: ANHED 12:47 → ANH2MED 16:31
PROVIDERS: Emergency Medicine; Internal Medicine; Internal Medicine Gastroenterology; Physician Assistant; Admitting Provider Hospitalist; Emergency Provider Emergency Medicine; PCP Internal Medicine; Visit Provider Family Medicine
PROC: 0DJ08ZZ Inspection of Upper Intestinal Tract, Via Natural or Artificial Opening Endoscopic (ICD-10-PCS; CPT 43235; principal; 2022-05-18 12:00)
DX: K25.4 Chronic or unspecified gastric ulcer with hemorrhage (principal); N18.4 Chronic kidney disease, stage 4 (severe); K29.70 Gastritis, unspecified, without bleeding; K57.30 Diverticulosis of large intestine without perforation or abscess without bleeding; K63.5 Polyp of colon; K64.8 Other hemorrhoids; B96.81 Helicobacter pylori [H. pylori] as the cause of diseases classified elsewhere; D63.1 Anemia in chronic kidney disease; D50.0 Iron deficiency anemia secondary to blood loss (chronic); I48.0 Paroxysmal atrial fibrillation; E87.5 Hyperkalemia; G47.33 Obstructive sleep apnea (adult) (pediatric); I25.10 Atherosclerotic heart disease of native coronary artery without angina pectoris; I12.9 Hypertensive chronic kidney disease with stage 1 through stage 4 chronic kidney disease, or unspecified chronic kidney disease; E03.9 Hypothyroidism, unspecified; N40.0 Benign prostatic hyperplasia without lower urinary tract symptoms; Z20.822 Contact with and (suspected) exposure to COVID-19; Z79.01 Long term (current) use of anticoagulants; Z79.899 Other long term (current) drug therapy; Z86.73 Personal history of transient ischemic attack (TIA), and cerebral infarction without residual deficits; Z99.89 Dependence on other enabling machines and devices; Z95.0 Presence of cardiac pacemaker; Z95.1 Presence of aortocoronary bypass graft
CPT/HCPCS: 36415; 36430; 71046; 74176; 80048; 80053; 82274; 82607; 82668; 82728; 82746; 83540; 83550; 83615; 83735; 83880; 84439; 84443; 84480; 84484; 85014; 85018; 85025; 85027; 85046; 85610; 85730; 86850; 86900; 86901; 86923; 87081; 87636; 88305; 93005; 94640; 96365; 96374; 96375; 99285; A9270; G0378; J1756; J1815; J1940; J2704; J7050; J7120; P9016

== ENCOUNTER 2022-06-14 12:23 | Outpatient (CLI) | payer MEDICARE, SELFPAY ==
[2022-06-14 12:41] LABS: Hematocrit 32.3 % (42.0-52.0); Hemoglobin 9.9 g/dL (14.0-18.0); Mean Corpuscular HGB Conc 30.7 g/dl (32-36); Mean Corpuscular Hemoglobin 29.8 pg (26-34); Mean Corpuscular Volume 97.3 fl (80-100); Mean Platelet Volume 8.4 fl (7.4-10.4); Platelet Count Result 218 k/mm3 (150-375); Red Blood Count 3.32 M/mm3 (4.6-6.20); Red Cell Distribution Width 24.7 % (11.5-14.5); White Blood Count 5.9 K/mm3 (4.5-10.0)
[2022-06-14 14:00] LABS: Iron 161 ug/dL (49-181)
[2022-06-14 14:02] LABS: Anion Gap 9 mmol/L (8-16); Blood Urea Nitrogen 30 mg/dL (9-20); Calcium 8.5 mg/dL (8.4-10.2); Carbon Dioxide 23 mmol/L (22-30); Chloride 107 mmol/L (98-107); Estimated Glomerular Filt Rate 29; Glucose 105 mg/dL (65-110); Potassium 4.9 mmol/L (3.4-5.0); Sodium 139 mmol/L (137-145)
[2022-06-14 14:09] LABS: Percent Iron Saturation 51 % (20-50)
== END 2022-06-14 12:24 | disposition home or self-care (01) ==
LOC: ANHLAB 12:24
PROVIDERS: PCP Internal Medicine; Visit Provider Internal Medicine Hematology & Oncology
DX: D64.9 Anemia, unspecified (principal)
CPT/HCPCS: 36415; 80048; 82728; 83540; 83550; 85027

== ENCOUNTER 2024-01-28 09:22 | Outpatient (CLI) | payer MEDICARE, SELFPAY ==
[2024-01-28 09:52] LABS: Basophils Absolute Auto 0.1 K/mm3 (0.0-0.1); Eosinophils Absolute Auto 0.6 K/mm3 (0-0.3); Eosinophils Percent Auto 11.8 % (0-4.4); Hematocrit 39.3 % (42.0-52.0); Hemoglobin 13.3 g/dL (14.0-18.0); Immature Granulocyte Absolute 0.05 K/mm3 (0.00-0.031); Lymphocytes Absolute Auto 0.82 K/mm3 (0.9-3.2); Lymphocytes Percent Auto 16.6 % (18.3-44.2); Mean Corpuscular HGB Conc 33.8 g/dl (32-36); Mean Corpuscular Hemoglobin 35.1 pg (26-34); Mean Corpuscular Volume 103.7 fl (80-100); Mean Platelet Volume 8.7 fl (7.4-10.4); Monocytes Absolute Auto 0.9 K/mm3 (0.1-0.6); Monocytes Percent Auto 17.6 % (2.6-8.5); Neutrophils Absolute Auto 2.6 K/mm3 (1.3-6.7); Platelet Count Result 200 k/mm3 (150-375); Red Blood Count 3.79 M/mm3 (4.6-6.20); Red Cell Distribution Width 13.5 % (11.5-14.5); White Blood Count 4.9 K/mm3 (4.5-10.0)
[2024-01-28 12:37] LABS: Anion Gap 12 mmol/L (4-12); Blood Urea Nitrogen 34 mg/dL (9-20); Calcium 8.9 mg/dL (8.4-10.2); Carbon Dioxide 22 mmol/L (22-30); Chloride 101 mmol/L (98-107); Estimated Glomerular Filt Rate 22; Glucose 114 mg/dL (65-110); Sodium 135 mmol/L (137-145)
[2024-01-28 13:48] LABS: Folic Acid > 20.0 ng/mL (2.76->20); Vitamin B12 > 1000.0 pg/mL (239-931)
[2024-01-28 16:58] LABS: Iron 110 ug/dL (49-181)
[2024-01-28 17:08] LABS: Percent Iron Saturation 49 % (20-50)
== END 2024-01-28 09:23 | disposition home or self-care (01) ==
PROVIDERS: Nurse Practitioner Family; PCP Internal Medicine; Visit Provider Internal Medicine Hematology & Oncology
DX: D64.9 Anemia, unspecified (principal)
CPT/HCPCS: 36415; 80048; 82607; 82728; 82746; 83540; 83550; 85025

== ENCOUNTER 2024-04-10 10:47 | Outpatient (CLI) | payer MEDICARE, SELFPAY ==
[2024-04-10 19:47] LABS: Creatinine Urine 112.3 mg/dL
[2024-04-10 20:50] LABS: Total Protein Urine Random 250 mg/dL; Ur Ttl Prot Creatinine Ratio 2.23 mg/mg (0-0.20)
[2024-04-10 21:28] LABS: Albumin Level 4.1 g/dL (3.5-5.1); Anion Gap 10 mmol/L (4-12); Blood Urea Nitrogen 39 mg/dL (9-20); Calcium 8.9 mg/dL (8.4-10.2); Carbon Dioxide 21 mmol/L (22-30); Chloride 105 mmol/L (98-107); Estimated Glomerular Filt Rate 22; Glucose 113 mg/dL (65-110); Phosphorus 3.4 mg/dL (2.5-4.5); Potassium 5.1 mmol/L (3.4-5.0); Sodium 136 mmol/L (137-145)
[2024-04-10 21:38] LABS: Parathyroid Intact 83.4 pg/mL (14.5-75.2)
== END 2024-04-10 10:48 | disposition home or self-care (01) ==
LOC: ANHGOSHLAB 10:49
PROVIDERS: PCP Internal Medicine; Visit Provider Internal Medicine Nephrology
DX: N25.81 Secondary hyperparathyroidism of renal origin (principal); I12.9 Hypertensive chronic kidney disease with stage 1 through stage 4 chronic kidney disease, or unspecified chronic kidney disease; N18.4 Chronic kidney disease, stage 4 (severe); E55.9 Vitamin D deficiency, unspecified
CPT/HCPCS: 36415; 80069; 82306; 82570; 83970; 84156

== ENCOUNTER 2024-08-07 10:13 | Outpatient (CLI) | payer MEDICARE, SELFPAY ==
[2024-08-07 10:27] LABS: Hematocrit 38.9 % (42.0-52.0); Hemoglobin 13.1 g/dL (14.0-18.0); Mean Corpuscular HGB Conc 33.7 g/dl (32-36); Mean Corpuscular Hemoglobin 34.9 pg (26-34); Mean Corpuscular Volume 103.7 fl (80-100); Mean Platelet Volume 8.6 fl (7.4-10.4); Platelet Count Result 209 k/mm3 (150-375); Red Blood Count 3.75 M/mm3 (4.6-6.20); Red Cell Distribution Width 13.7 % (11.5-14.5); White Blood Count 5.3 K/mm3 (4.5-10.0)
[2024-08-07 12:06] LABS: Iron 106 ug/dL (49-181)
[2024-08-07 12:09] LABS: Anion Gap 11 mmol/L (4-12); Blood Urea Nitrogen 32 mg/dL (9-20); Calcium 9.1 mg/dL (8.4-10.2); Carbon Dioxide 21 mmol/L (22-30); Chloride 105 mmol/L (98-107); Estimated Glomerular Filt Rate 22; Glucose 100 mg/dL (65-110); Potassium 4.7 mmol/L (3.4-5.0); Sodium 137 mmol/L (137-145)
[2024-08-07 12:15] LABS: Percent Iron Saturation 48 % (20-50)
[2024-08-07 13:46] LABS: Folic Acid > 20.0 ng/mL (2.76->20)
== END 2024-08-07 10:14 | disposition home or self-care (01) ==
LOC: ANHLAB 10:14
PROVIDERS: PCP Internal Medicine; Visit Provider Internal Medicine Hematology & Oncology
DX: D64.9 Anemia, unspecified (principal)
CPT/HCPCS: 36415; 80048; 82607; 82728; 82746; 83540; 83550; 85027

== ENCOUNTER 2024-10-07 09:52 | Outpatient (CLI) | payer MEDICARE, SELFPAY ==
--- OUTSIDE RECORDS SUMMARY | 2024-10-07 10:46 | XMS_ITS | Continuity of Care Document ---
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 [facility] , [address], [place], [place], [facility] [place]note 2], [place]. tel:[phone] Referring Provider: Yudy Rod[facility]guez [facility] Mendy [address], [place], [place], [facility] [place][note 2]. tel:[phone] Office/outpat ient Visit, [facility], [address] [place] [address] [address], [place], [place], [address], tel:[phone] [place] [address] No Information 3-201 0 Nazario Thao. [facility] Mendy [address], [address], [place], [facility] [place][note 2], [place]. tel:[phone] Referring Provider: Yudy Rod[facility]guez [facility] Mendy [address], [place], [facility] [place][note 2]. tel:[phone] Office/outpat ient Visit, [facility], [address] [place] [address] [address], [place], [place], [address], [place] tel:[phone] [place] [address] No Information 5200 9 Nazario Thao. [facility] Mendy [address], [place], [facility] [place][note 2], [place]. tel:[phone] Referring Provider: Yudy Rod[facility]guez [facility] Mendy [address], [place], [facility] [place][note 2]. tel:[phone] Office/outpat ient Visit, [facility], [address] [place], [place] [address]st [address], [place], [place], [address], [place] tel:[phone] SEC [facility] No Information Apr- 5-200 8 Nazario Thao. [address] [facility] , [address], [place], [facility] [place][note 2], [place]. tel:[phone] Referring Provider: Master Emanuel, [facility] [address], [place], [address]. tel:[phone] [facility], [address], [place], [place], [address], [place] tel:[phone] [facility] No Information 1-200 8 [employer] . [address] [facility], [address], [place], [place], [address], [place]. tel:[phone] Referring Provider: Master Emanuel, [facility] [address], [place], [facility] [place][note 2]. tel:[phone] g Provider: Erika Perez, [address] [place], [address]. tel:[phone] Office/outpat ient Visit, [facility], [address], [place], [place], [address], [place] tel:[phone] [facility] No Information Oct-0 9-200 8 Nazario Thao. [facility] , [address], [place], [facility] [place][note 2], [place]. tel:[phone] Referring Provider: Al Emanuel, [address], [place], [address]. tel:[phone] [facility], [address], [place], [place], [address], [place] tel:[phone] [facility] No Information 8-200 7 Fabienne Panchal. [address] [place], [address], [place]. tel:[phone] Referring Provider: Abdulkadir Lux, 12 [facility], [place], [address]. tel:[phone] [facility], [address], [place], [place], [address], [place] tel:[phone] [facility] [place] No Information 2200 [address] [place] [address], [address], [place], [place], [address], [place]. tel:[phone] Referring Provider: Y[facility]y [facility] [address], [place], [address]. tel:[phone] [facility], [address], [place], [place], [address], [place] tel:[phone] [facility] [place] No Information 3200 7 [place], [address], [place], [place], [address], [place]. tel:[phone] Referring Provider: Yudy Rod[facility] [address], [place], [address]. tel:[phone] [facility], [address], [place], [place], [address], [place] tel:[phone] [facility] [place] No Information 9200 [address] [place] [address], [address], [place], [place], [address], [place]. tel:[phone] Referring Provider: Master Emanuel [address] [facility] [address], [place], [address]. tel:[phone] [facility], [address], [place], [place], [address], [place] [phone] SEC [place] [facility] [place] No Information Kt-2 2-200 7 [place], [address], [place], [place], [address], [place]. tel:[phone] Referring Provider: Yudy Rod[facility]guez [facility] [address], [place], [address]. tel:[phone] [facility], [address] [place] [address] [address], [place], [place], [address], [place] tel:[phone] SEC [facility] [facility] [place] No Information Dec-1 9-200 7 [place], [address], [place], [place], [address], [place]. tel:[phone] Referring Provider: Yudy Rod[facility]guez [facility] [address], [place], [address]. tel:[phone] [facility], [address] [place] [address] [address], [place], [place], [address], [place] tel:[phone] [facility] [place] No Information 1 4-200 7 [place]. [address] [place] [address] [address] [facility], [address], [place], [place], [address], [place]. tel:[phone] Referring Provider: Yudy Rodríguez [facility] [address], [place], [address]. tel:[phone] Office/outpat ient Visit, [facility], [address] [place] [address] [address], [place], [place], [address], [place] tel:[phone] [facility] [place] [facility] [place] No Information 8-200 7 [place]. [address] [place] [address], [address], [place], [place], [address], [place]. tel:[phone] Referring Provider: Yudy Rod[facility] [address], [place], [address]. tel:[phone] [facility], [address] [place] [address] [address], [place], [place], [address], [place] tel:[phone] [facility] No Information Oct- 3-200 7 Nazario Thao. [address] , [address], [place], [address], [place]. tel:[phone] Office/outpat ient Visit, [facility], [address], [place], [place], [address], [place] tel:[phone] [facility] No Information Mar-0 8-200 7 Fabienne Panchal. [address] [place], [address], [place]. tel:[phone] Family History Family Member Type Diagnosis Age At Onset No Information Payers Payer name Insurance type Covered alliance party ID Authoriza tiwade(s) Medicare [facility] [id number] Social History Type Description Quantity Date Captured [...]
--- OUTSIDE RECORDS SUMMARY | 2024-10-07 10:46 | XMS_ITS | Encounter Summary ---
Author Organization [facility] Address [address] [place] [address] Phone Care Team Providers Care Director Medical Surgical Name Role Phone Davidson Arellano MD Primary Care Provider [phone] Encounter Details Date Type Department Care Team (Latest Contact Info) Description 10/31/2017 Orders Only [facility] CONVERSION Scanning, Provider Social History Tobacco Use Types Packs/Day Years Used Date Smoking Tobacco: Former Sex and Gender Information Value Date Recorded Sex Assigned at Not on file Legal Sex Male 12:33 AM CARDIAC CATH TECHNOLOGIST Gender Identity Male 10/20/2019 1:20 PM CDT Sexual Orientation Straight 10/20/2019 1: 20 PM CDT documented as of this encounter Plan of Treatment Not on file documented as of this encounter Procedures Procedure Name Priority Date/Time Associated Diagnosis Comments VASCULAR LABORATORY REPORT 10/31/2017 3:46 PM CDT documented in this encounter Results * VASCULAR LABORATORY REPORT (10/31/2017 3:46 PM CDT) Anatomical Region Laterality Modality Ultrasound us Provider Scanning CV VASCULAR PROCEDURES Final R esult documented in this encounter Visit Diagnoses Not on filedocumented in this encounter Additional Health Concerns Infection Onset Date Last Indicated Resolved Time COVID: Suspected 07/27/2021 07/27/2021 07/27/2021 3:36 PM CARDIAC CATH TECHNOLOGIST COVID19 07/27/2021 07/27/2021 08/06/2021 3:05 AM CARDIAC CATH TECHNOLOGIST COVID: Recovered Comment:Added based on recent COVID infection. 08/06/2021 09/06/2021 12/04/2021 3:05 AM C DT documented as of this encounter Care Teams Director Medical Surgical Relationship Specialty Start Date End Date Davidson Arellano MD [address] [address] PCP - General 06/13/11 documented as of this encounter
--- OUTSIDE RECORDS SUMMARY | 2024-10-07 10:46 | XMS_ITS | CONTINUITY OF CARE DOCUMENT ---
Author Name tyler scott Address Unknown Organization [facility] Address [address] [place] [address] Phone [phone] Care Team Providers Care Automotive Exhaust Emissions Technician Name Role Phone STACI BROWN MD Unavailable [phone] STACI BROWN MD Unavailable [phone] INSURANCE PROVIDERS Payer name Policy type / Coverage type Clarence red republican ID [place] [employer] insurance [employer] [id number] [place] Medicare [id number]
--- OUTSIDE RECORDS SUMMARY | 2024-10-07 10:46 | XMS_ITS | Clinical Summary ---
Author Organization [facility] Address [address] [place] [address] Care Team Providers Care Transition Assistant Name Role Phone Davidson Arellano MD Primary Care Provider [phone] Allergies No known active allergies Medications vitamins A,C,E-zinc-fluoroscope operator per (OCUVITE) 7,160 unit- 113 mg-100 unit tablet Take by mouth 2 times daily Active omega-3 fatty acids-fish oil 360-1,200 mg capsule Take 1,200 mg by mouth daily Active aspirin 81 mg chewable tablet Take 1 tablet (81 mg total) by mouth daily 0 Active traMADoL (ULTRAM) 50 mg tablet Take 1 tablet (50 mg total) by mouth every 6 (six) hours as needed for pain Active acetaminophen (TYLENOL) 500 mg tablet Take 1 tablet (500 mg total) by mouth every 6 (six) hours as needed for pain Active amLODIPine (NORVASC) 10 mg tablet Take 1 tablet by mouth once daily 90 tablet 2 4 Active metoprolol tartrate (LOPRESSOR) 25 mg immediate release tablet TAKE 3 TABLETS BY MOUTH TWICE DAILY 540 tablet 2 4 Active losartan (COZAAR) 100 mg tablet Take 1 tablet by mouth once daily 90 tablet 3 4 Active allopurinoL (ZYLOPRIM) 300 mg tablet Take 1 tablet by mouth once daily 90 tablet 3 4 Active rosuvastatin (CRESTOR) 10 mg tablet Take 1 tablet by mouth once daily 90 tablet 2 4 Active levothyroxine (SYNTHROID) 50 mcg tablet Take 1 tablet by mouth once daily 90 tablet 2 4 Active apixaban (Eliquis) 2.5 mg tablet Take 1 tablet (2.5 mg total) by mouth 2 (two) times a day 180 tablet 1 5 Active FeroSuL 325 mg (65 mg iron) tablet Take 1 tablet by mouth twice daily 180 tablet [address] (PROTONIX) 40 mg EC tablet Take 1 tablet by mouth twice daily 180 tablet 5 Active ferrous sulfate (Iron, ferrous sulfate,) 325 mg (65 mg of elemental iron) tablet Take 1 tablet by mouth twice daily 180 tablet 1 4 10/02/[address] (PROTONIX) 40 mg EC tablet Take 1 tablet by mouth twice daily 180 tablet 1 4 10/02/19 25 Discontinued Active Problems Problem Noted Date Diagnosed Date Helicobacter pylori infection 06/13/2022 Peptic ulcer disease 06/13/2022 Assessment & Plan (04/15/2024 11:28 AM CDT): No signs or symptoms of stomach disease or bleeding Epistaxis 08/03/2021 Assessment & Plan (08/03/2021 3:36 PM FOUNDER CEO & PRESIDENT): Restart CPAP in two days NO NOSE BLOWING, WIPING, PICKING or RUBBING Packing placed today will dissolve on its own, it will not need to be removed If bleeding restarts, chin down over the sink and hold constant pressure to soft part of nose for 10 minutes Sneeze with mouth open Use humidifier in bedroom and home for moisture If bleeding profuse or persistent, go to closest ER or call ambulance Avoid taking aspirin or NSAIDs. Continue Eliquis Avoid bending or straining or heavy lifting for 1 weeks. Nasal saline spray (Simply saline, Little Remedies, [place], [place]) 2 second sprays or 2 squeezes into each nostril while looking down over the sink, do not need to sniff in. In 48 hours if no further bleeding 2-3 times daily for one month, then if nose bleeds improved, decrease to twice daily Bilateral lower extremity edema 06/20/2021 Visit for wound check 11/27/2019 Cardiac pacemaker in situ 11/20/2019 Overview (11/20/2019): Biotronik Dual Pacemaker, Dx; Second Degree AVB-Mobitz II, Post op Afib. DOI 11/19/2019-Stephania. Bi[employer]ronik remote home monitoring. Hx of CABG 11/04/2019 Paroxysmal atrial fibrillation 10/21/2019 Assessment & Plan (04/15/2024 11:28 AM CDT): Stable. Remains on anticoagulation Coronary artery disease invo lving [place] coronary artery of [place] heart without angina pectoris 08/22/2019 Overview (08/22/2019): Added automatically from request for surgery [id number] Assessment & Plan (04/15/2024 11:28 AM CDT): Continue present Rx no signs or symptoms of angina Stage 3 chronic kidney disease 07/21/2019 Assessment & Plan (04/15/2024 11:27 AM CDT): Stable and doing well at this time Mixed hyperlipidemia 07/21/2019 Assessment & Plan (04/15/2024 11:28 AM CDT): Stable. Surgical follow-up care 09/09/2015 Stenosis of carotid artery 09/24/2014 Resolved Problems Problem Noted Date Diagnosed Date Resolved Date Hyperlipidemia 11/17/2020 06/20/2021 Second degree AV block, Mobitz type II 11/04/2019 06/20/2021 Coronary artery disease invo lving [place] coronary artery 08/19/2019 06/20/2021 Abnormal stress test 07/28/2019 021 Chest pain 07/21/2019 10/21/2019 PHAN (dyspnea on exertion) 07/21/2019 Abnormal EKG 07/21/2019 06/20/2021 Hypertension 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 07/21/2019 03/29/2020 Arteriosclerotic vascular disease 10/04/2015 06/20/2021 Encounters Date Type Department Care Team Description 08/07/2024 Orders Only [facility] [address] [facility] [address] [place] [address] Davidson Arellano MD 07/24/2024 Orders Only [facility] [address] [place] [address] [address] [place] [address] Maye Castro MD Cardiac pacemaker in situ (Primary Dx); AVB (atrioventricular block); Mobitz type 2 second degree heart block 07/15/2024 7:00 AM FOUNDER CEO & PRESIDENT Ancillary Procedure [facility] [address] [place] [address] [address] [phone] Cardiac pacemaker in situ [Z95.0] (Primary Dx); Paroxysmal atrial fibrillation (HCC); Second degree AV block, Mobitz type II from Last 3 Months Immunizations Immunization Administration Dates Next Due Influenza LAIV (Nasal) 04/07/2020,04/22/2019 Influenza Virus Vaccine Trivalent Mdv 04/29/2018 Influenza, Quad, Adjuvantate d, Intramuscular 03/24/2020,03/24/2020 Influenza, Quadrivalent, Spl it, Intramuscular 04/07/2020,04/07/2020,04/22/2019,04/22 Influenza, Quadrivalent, Spl it, Preservative Free, Intramuscular 04/07/2014,04/07/2014,05/13/2013,05/13,04/08/2013,04/08/2013 Influenza, Trivalent, High D ose, Split, Preservative Free, Intramuscular 05/10/2021,05/23/2017,05/23/2017,04/11,04/11/2016,06/14/2015,06/14/2015 Influenza, Trivalent, IM (MDV) 05/29/2016,2015 Influenza, Trivalent, Preser vative Free, Intramuscular 03/24/2020 Influenza, Unspecified 05/10/2021,03/24/2020 Pneumococcal Conjugate 7-Valent 04/07/2014,05/29 Pneumococcal Conjugate PCV 13 06/14/2015, 015 Pneumococcal Polysaccharide PPV23 2013,04/07/2014,05/29/2006,05/29 Sars-CoV-2, Unspecified 10/30/2020 ZOSTER LIVE 07/14/2014,07/14/2014 ZOSTER Recombinant 05/27/2019, 9,03/24/2019,03/24 Surgical History Surgery Date Site/Laterality Comments TOTAL HIP ARTHROPLASTY 07/09/2003 - 07/08/2004 Left CATARACT EXTRACTION, BILATERAL 07/09/2017 - 07/08/2018 CAROTID ENDARTERECTOMY 07/09/2010 - 07/08/2011 Right [facility] CORONARY ARTERY BYPASS GRAFT 08/28/2019 CABG x 3 Medical History Medical History Date Comments Hypertension High cholesterol Ulcer (traumatic) of oral mucosa Thyroid disease Gout Sleep apnea Chronic kidney disease Stage III /IV, duration unknown Stroke (HCC) 2010 Status post cheney tid endarterectomy no symptoms since Coronary artery disease Heart disease Family History Medical History Relation Name Comments Cancer Father Herve Villafuerte, Family his tory of malignant neoplasm - (Added by TW Conv) Heart failure Father Herve Villafuerte Family hi story of congestive heart failure - (Added by TW Conv) Cancer Mother Anupama Villafuerte Family histo ry of malignant neoplasm - (Added by TW Conv) Relation Name Status Comments Father Herve Villafuerte, (Age 80) HEART DISEASE Mother Anupama Villafuerte (Age 74) CANCER Social History Tobacco Use Types Packs/Day Years Used Date Smoking Tobacco: Former Smokeless Tobacco: Never Tobacco Cessation:Counseling Given: Not Answered Comments:QUITE 25 YEARS AGO Alcohol Use Standard Drinks/Week Comments Yes 0 (1 standard drink = 0.6 oz pur e alcohol) 4 BEERS DAILY AUDIT-C Answer Date Recorded Frequency of Alcohol Consumption 4 or more times a week 11/11/2018 Average Number of Drinks Not on file 019 Frequency of Binge Drinking Not on file 12/2018 Sex and Gender Information Value Date Recorded Sex Assigned at Not on file Legal Sex Male 12:33 AM FOUNDER CEO & PRESIDENT Gender Identity Male 10/20/2019 1:20 PM CDT Sexual Orientation Straight 10/20/2019 1: 20 PM CDT Obstetrics History Last Filed Vital Signs Vital Sign Reading Time Taken Comments Blood Pressure 160/75 06/10/2024 2:02 PM FOUNDER CEO & PRESIDENT Pulse 94 05/26/2024 11:41 AM FOUNDER CEO & PRESIDENT Temperature 36.2 C (97.1 F) 08/03/2021 3:03 PM FOUNDER CEO & PRESIDENT Respiratory Rate 16 08/02/2021 2:00 AM FOUNDER CEO & PRESIDENT Oxygen Saturation 96% 05/26/2024 11:41 AM FOUNDER CEO & PRESIDENT Inhaled Oxygen Concentration - - Weight 97.8 kg (215 lb 8 oz) 05/26/2024 11:41 AM FOUNDER CEO & PRESIDENT Height 177.8 cm (5' 10 ) 05/26/2024 11:41 AM FOUNDER CEO & PRESIDENT Body Mass Index 30.92 05/26/2024 11:41 AM FOUNDER CEO & PRESIDENT Plan of Treatment Health Maintenance Due Date Last Done Comments Depression Screening 1935 Fall Risk Assessment 1935 DTaP/Tdap/Td Vaccine (1 - Tdap) 1946 Hepatitis B Screening 12[birth year]22/1953 Well Visit 65+ 2002 Covid-19 Vaccine (4 2023-2 5 season) 2024 10/30/2020, 09/01/2020, 08/11/2020 Influenza Vaccine (Season Ended) 2025 05/10/2021, 05/10/2021, 04/07/2020, Additional history exists Pneumococcal vaccine 65+ Completed 015, 06/14/2015, 04/07/2014, Additional history exists Zoster Vaccine Completed 05/27/2019, 05/09, 03/24/2019, Additional history exists Procedures Procedure Name Priority Date/Time Associated Diagnosis Comments SCAN - LABS 08/07/2024 2:47 PM FOUNDER CEO & PRESIDENT SCAN - LABS 08/07/2024 11:31 AM FOUNDER CEO & PRESIDENT DEVICE CHECK - REMOTE Routine 07/24/2024 12:22 PM FOUNDER CEO & PRESIDENT Paroxysmal atrial fibrillation (HCC) Second degree AV block, Mobitz type II from Last 3 Months Results * SCAN - LABS (08/07/2024 2:47 PM FOUNDER CEO & PRESIDENT) us Davidson Arellano MD Final Result * SCAN - LABS (08/07/2024 11:31 AM FOUNDER CEO & PRESIDENT) us Davidson Arellano MD Final Result * DEVICE CHECK - REMOTE (07/24/2024 12:22 PM FOUNDER CEO & PRESIDENT) Anatomical Region Laterality Modality Other Narrative 08/15/2024 2:21 PM FOUNDER CEO & PRESIDENT Biotronik Dual Pacemaker, Dx; Second Degree AVB-Mobitz II, Post op Afib. DOI 11/19/2019-Stephania. Biotronik remote home monitoring. Routine DDD Pacemaker remote. Normal device function. Battery function-Ok, 65% remaining battery life to CELY. Appropriate lead measurements noted. Presenting rhythm: AP-VS. AP-85%, DIRECTOR SECURITY RISK MANAGEMENT-11%. No atrial high rate episodes noted. No ventricular high rate episodes noted. Medications; Lopressor, ASA, Elliquis. See scanned report. Office pacemaker f/u 04/01/2025. Biotronik remote 10/14/2024. Shanna Almaguer RN Maye Castro MD CV CARDIAC SERVICES PROCEDURES Final Result from Last 3 Months Insurance MEDICARE T SENIOR SUPPLEMENT MEDICARE [employer]ET[employer] SENIOR [facility] MEDICARE MEDICARE AET SENIOR SUPPLEMENT MEDICARE AET SENIOR SUPPLEMENT Advance Directives For more information, please contact: [phone] * Full Code (Latest Code Status on File) Date Activated Date Inactivated Comments 09/05/2019 6:41 PM 08/01/2021 11:04 PM * Full Code Date Activated Date Inactivated Comments 08/28/2019 12:36 PM 09/04/2019 6:57 PM Care Teams Transition Assistant Relationship Specialty Start Date End Date Davidson Arellano MD [address] [address] PCP - General 06/13/11
--- OUTSIDE RECORDS SUMMARY | 2024-10-07 10:46 | XMS_ITS | Referral Summary ---
Author Organization [facility] Address [address] [place] [address] Care Team Providers Care Obstetrician And Gynaecologist Name Role Phone Davidson Arellano MD Primary Care Provider Encounters Date Type Department Care Team Description 08/07/2024 Orders Only [facility] [address] [facility] [address] [place] [phone] Davidson Arellano MD 07/24/2024 Orders Only [facility] Cardiology [address] [place] [address] [place] [phone] Maye Castro MD Cardiac pacemaker in situ (Primary Dx); AVB (atrioventricular block); Mobitz type 2 second degree heart block 07/15/2024 7:00 AM CYBER SECURITY ANALYST Ancillary Procedure [facility] [address] [place] [address] [place] [phone] Cardiac pacemaker in situ [Z95.0] (Primary Dx); Paroxysmal atrial fibrillation (HCC); Second degree AV block, Mobitz type II from Last 3 Months Allergies No known active allergies Medications vitamins A,C,E-zinc-copra processor per (OCUVITE) 7,160 unit- 113 mg-100 unit [...] 08/03/2021 Assessment & Plan (08/03/2021 3:36 PM CYBER SECURITY ANALYST): Restart CPAP in two days NO NOSE [...] Nasal saline spray (Simply saline, Little Remedies, [place], [place]) 2 second sprays or 2 squeezes into [...] on anticoagulation Coronary artery disease invo lving nuiqsut coronary artery of [place] heart without angina pectoris 08/22/2019 Overview (08/22/2019): Added automatically from request for surgery [id number] Assessment & Plan (04/15/2024 11:28 AM CDT): [...] 11/04/2019 06/20/2021 Coronary artery disease invo lving [place]qs[place] coronary artery 08/19/2019 06/20/2021 Abnormal stress test 07/28/2019 021 Chest pain 07/21/2019 10/21/2019 PHAN (dyspnea on exertion) 07/21/2019 Abnormal EKG 07/21/2019 06/20/2021 Hypertension 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 07/21/2019 03/29/2020 Arteriosclerotic vascular disease 10/04/2015 06/20/2021 Immunizations Immunization Administration Dates Next Due Influenza [...] ZOSTER LIVE 07/14/2014,07/14/2014 ZOSTER Recombinant 05/27/2019, 9,03/24/2019,03/24 Social History Tobacco Use Types Packs/Day Years [...] on file Legal Sex Male 12:33 AM CYBER SECURITY ANALYST Gender Identity Male 10/20/2019 1:20 PM CDT Sexual Orientation Straight 10/20/2019 1: 20 PM CDT Last Filed Vital Signs Vital Sign Reading Time Taken Comments Blood Pressure 160/75 06/10/2024 2:02 PM CYBER SECURITY ANALYST Pulse 94 05/26/2024 11:41 AM CYBER SECURITY ANALYST Temperature 36.2 C (97.1 F) 08/03/2021 3:03 PM CYBER SECURITY ANALYST Respiratory Rate 16 08/02/2021 2:00 AM CYBER SECURITY ANALYST Oxygen Saturation 96% 05/26/2024 11:41 AM CYBER SECURITY ANALYST Inhaled Oxygen Concentration - - Weight 97.8 kg (215 lb 8 oz) 05/26/2024 11:41 AM CYBER SECURITY ANALYST Height 177.8 cm (5' 10 ) 05/26/2024 11:41 AM CYBER SECURITY ANALYST Body Mass Index 30.92 05/26/2024 11:41 AM CYBER SECURITY ANALYST Plan of Treatment Not on file Procedures Procedure Name Priority Date/Time Associated Diagnosis Comments SCAN - LABS 08/07/2024 2:47 PM CYBER SECURITY ANALYST SCAN - LABS 08/07/2024 11:31 AM CYBER SECURITY ANALYST DEVICE CHECK - REMOTE Routine 07/24/2024 12:22 PM CYBER SECURITY ANALYST Paroxysmal atrial fibrillation (HCC) Second degree AV block, Mobitz type II from Last 3 Months Results * SCAN - LABS (08/07/2024 2:47 PM CYBER SECURITY ANALYST) Davidson Arellano MD Final Result * SCAN - LABS (08/07/2024 11:31 AM CYBER SECURITY ANALYST) Davidson Arellano MD Final Result * DEVICE CHECK - REMOTE (07/24/2024 12:22 PM CYBER SECURITY ANALYST) Anatomical Region Laterality Modality Other Narrative 08/15/2024 2:21 PM CYBER SECURITY ANALYST Biotronik Dual Pacemaker, Dx; Second Degree AVB-Mobitz II, Post op Afib. DOI 11/19/2019-Stephania. Biotronik remote home monitoring. Routine DDD Pacemaker remote. Normal device function. Battery function-Ok, 65% remaining battery life to CELY. Appropriate lead measurements noted. Presenting rhythm: AP-VS. AP-85%, SPARK PLUG TESTER-11%. No atrial high rate episodes noted. No ventricular high rate episodes noted. Medications; Lopressor, ASA, Elliquis. See scanned report. Office pacemaker f/u 04/01/2025. Biotronik remote 10/14/2024. Shanna Almaguer, TOY Maye Castro MD [facility] CARDIAC SERVICES PROCEDURES Final Result from Last 3 Months Insurance MEDICARE AETNA SENIOR [facility] MAI [id number] MEDICARE FOR[facility]LY [facility] SENIOR SUPPLEMENT [facility] [place]I [place] [id number] MEDICARE AETNA SENIOR SUPPLEMENT Advance Directives For more information, please contact: [phone] * Full Code (Latest Code Status on File) Date Activated Date Inactivated Comments 09/05/2019 6:41 PM 08/01/2021 11:04 PM * Full Code Date Activated Date Inactivated Comments 08/28/2019 12:36 PM 09/04/2019 6:57 PM Care Teams Obstetrician And Gynaecologist Relationship Specialty Start Date End Date Davidson Arellano MD [address] [address] PCP - General 06/13/11
--- OUTSIDE RECORDS SUMMARY | 2024-10-07 10:46 | XMS_ITS | Clinical Summary ---
Author Organization [facility] Tony carr [facility] Address [address] [place] [address] Care Team Providers Care Pyrometer Temperature Regulator Name Role Phone Davidson Arellano MD Primary Care Provider [phone] Allergies No known active allergies Medications allopurinoL (ZYLOPRIM) 300 mg tablet Take 300 mg by mouth daily. Active amLODIPine-ator vastatin 10-10 mg tablet Take 1 Tablet by mouth daily. Active losartan (COZAAR) 100 mg tablet Take 100 mg by mouth daily. Active metoprolol tartrate (LOPRESSOR) 25 mg tablet Take 25 mg by mouth 2 times daily. Active rosuvastatin (CRESTOR) 10 mg tablet Take 10 mg by mouth daily. Active finasteride (PROSCAR) 5 mg tablet Take 5 mg by mouth daily. Active aspirin (ASTRID CHEWABLE) 81 mg Tablet, Chewable Take 81 mg by mouth daily. Active Fish Oil-[place]-3 Fatty Acids 360-1,200 mg Capsule Take 1 Capsule by mouth. Active traMADoL (ULTRAM) 50 mg tablet Take 50 mg by mouth every 6 hours as needed. Active calcium-vitamin D3 (CALTRATE 600+D) 600 mg-5 mcg (200 unit) Tablet Take by mouth. Active apixaban (ELIQUIS) 2.5 mg tablet Take 2.5 mg by mouth 2 times daily. Active levothyroxine 50 mcg tablet Take 1 Tablet by mouth daily. 04/20/2020 Active pantoprazole (PROTONIX) 40 mg Tablet, Delayed Release (E.C.) Take 40 mg by mouth every 12 hours. 07/31/2022 Active ferrous sulfate 325 mg (65 mg iron) tablet Take by mouth. 06/13/2022 Active Active Problems No known active problems Encounters Date Type Department Care Team Description 09/24/2024 External Device Data [facility] ABSTRACTION Provider, Abstract 09/13/2024 External Device Data [facility] ABSTRACTION Provider, Abstract 09/12/2024 External Device Data [facility] ABSTRACTION Provider, Abstract 08/27/2024 External Device Data [facility] ABSTRACTION Provider, Abstract 08/14/2024 4:30 PM COMPUTERIZED MILL MILL RECORDER Telephone Check Up [facility] Oncology and Hematology [facility] [address] [place] [address] Yong Dsouza MD Chronic anemia (Primary Dx) 08/12/2024 Telephone [facility] Oncology and Hematology [facility] [address] [place] [address] Yong Dsouza MD Appointment Correction 08/08/2024 Orders Only [facility] Oncology and Hematology [facility] [address] [place] [address] Yong Dsouza MD 07/30/2024 External Device Data [facility] ABSTRACTION Provider, Abstract 07/30/2024 External Device Data [facility] ABSTRACTION Provider, Abstract from Last 3 Months Family History Medical History Relation Name Comments No Known Problems Brother 1 Cancer Brother 2 Cancer Brother 3 No Known Problems Daughter 1 No Known Problems Daughter 2 Heart Disease Father Lung Cancer Mother No Known Problems Sister 1 No Known Problems Sister 2 No Known Problems Son Relation Name Status Comments Brother 1 Alive Brother 2 Brother 3 Daughter 1 Alive Daughter 2 Alive Father Mother Sister 1 Alive Sister 2 Alive Son Alive Social History Tobacco Use Types Packs/Day Years Used Date Smoking Tobacco: Former Cigarettes 2 20 0 07/09/1976 - 07/09/1996 Smokeless Tobacco: Never Tobacco Cessation:Counseling Given: Not Answered Sex and Gender Information Value Date Recorded Sex Assigned at Not on file Legal Sex Male 11:31 AM COMPUTERIZED MILL MILL RECORDER Gender Identity Not on file Sexual Orientation Not on file Last Filed Vital Signs Vital Sign Reading Time Taken Comments Blood Pressure 105/81 02/05/2024 10:03 AM CDT Pulse 80 02/05/2024 10:03 AM CDT Temperature 36.6 C (97.8 F) 02/05/2024 10:03 AM CDT Respiratory Rate 18 02/05/2024 10:03 AM CDT Oxygen Saturation 95% 02/05/2024 10:03 AM CDT Inhaled Oxygen Concentration - - Weight 98.4 kg (217 lb) 02/05/2024 10:03 AM CDT Height 177.8 cm (5' 10 ) 06/14/2022 11:57 AM COMPUTERIZED MILL MILL RECORDER Body Mass Index 31.14 06/14/2022 11:57 AM COMPUTERIZED MILL MILL RECORDER Plan of Treatment Upcoming Encounters Date Type Department Care Team (Late st Contact Info) Description 02/11/2025 1:00 PM CDT Office Visit [facility] Oncology and Hematology - [place] [address] [facility] [address] [place] [address] Yong Dsouza MD [address] [facility] [address] [place] [address] Health Maintenance Due Date Last Done Comments DTAP/TDAP/TD VACCINES (1 - Tdap) 1954 Traditional Medicare (ACO) A nnual Wellness Visit 1954 RSV VACCINE (60+ or ) (1 - 1-dose 75+ series) 2012 INFLUENZA VACCINE (#1) 2024 3, 04/25/2022, 05/10/2021, Additional history exists PNEUMOCOCCAL VACCINE 50+ YEARS Completed 1 08/15/2014, 04/07/2014, 04/07/2014, Additional history exists ZOSTER VACCINE Completed 05/27/2019, 03/09, 07/14/2014 Procedures Procedure Name Priority Date/Time Associated Diagnosis Comments BASIC METABOLIC PANEL Routine 08/07/2024 1:09 PM COMPUTERIZED MILL MILL RECORDER CBC WITH AUTODIFFERENTIAL Routine 2024 12:30 PM COMPUTERIZED MILL MILL RECORDER from Last 3 Months Results * BASIC METABOLIC PANEL (08/07/2024 1:09 PM COMPUTERIZED MILL MILL RECORDER) Blood us Yong Dsouza MD CHEMISTRY ORDERABLES Final Resu lt * CBC WITH AUTODIFFERENTIAL (08/07/2024 12:30 PM COMPUTERIZED MILL MILL RECORDER) Blood us Yong Dsouza MD HEMATOLOGY ORDERABLES Final Res ult from Last 3 Months Insurance MEDICARE PART A AND B AETNA MEDICARE SUPP AESSI Care Teams Pyrometer Temperature Regulator Relationship Specialty Start Date End Date Davidson Arellano MD [address] [place] [address] PCP - General Internal Medicine 10/09/22
--- OUTSIDE RECORDS SUMMARY | 2024-10-07 10:46 | XMS_ITS | Clinical Summary ---
Author Organization [facility] Address [address] [facility] [place] [address] Phone Care Team Providers Care Guard Chief Name Role Phone Lokesh Levy MD Unavailable Davidson Arellano MD Primary Care Provider [phone] Allergies No known active allergies Medications Aspirin 81 MG Tablet Take 81 mg by mouth daily. Active [place]-3 Fatty Acids (FISH OIL) 1200 MG Capsule Take 1,200 mg by mouth daily. Active verapamil CR (VERELAN) 240 MG CAPSULE SR 24 HR Take 240 mg by mouth daily. Active Multiple Vitamin (MULTI-VITAMIN PO) Take by mouth. Active rosuvastatin (CRESTOR) 5 MG Tablet Take 5 mg by mouth daily. Active allopurinol (ZYLOPRIM) 300 MG Tablet Take 300 mg by mouth daily. Active losartan (COZAAR) 100 MG Tablet TK 1 T PO D 5 05/17/2016 Active pantoprazole (PROTONIX) 40 MG Tablet Delayed Response TK 1 T PO QD 1 05/29/2016 Active Multiple Vitamins-Minerals (PRESERVISION AREDS) Tablet Take by mouth 2 times daily. Active levothyroxine (SYNTHROID) 50 MCG Tablet 2 05/08/2017 Active isosorbide mononitrate (IMDUR) 30 MG TABLET SR 24 HR Take 30 mg by mouth. 07/17/2019 Active finasteride (PROSCAR) 5 MG Tablet Take by mouth. 05/19/2020 Active metoprolol tartrate (LOPRESSOR) 25 MG Tablet Take by mouth. 05/19/2020 Active levothyroxine (SYNTHROID) 50 MCG Tablet Take by mouth. 04/20/2020 Active apixaban (ELIQUIS) 2.5 MG Tablet Take 2.5 mg by mouth 2 times daily. Active aspirin 81 MG Chewable Tablet Take 81 mg by mouth daily. 09/04/2019 Active Ferrous Sulfate (Iron) 325 (65 Fe) MG Tablet Take by mouth. Active amLODIPine (NORVASC) 10 MG Tablet Take 10 mg by mouth daily. Active levothyroxine (Euthyrox) 50 MCG Tablet Take 50 mcg by mouth daily. Active Active Problems Problem Noted Date Diagnosed Date SULAIMAN on CPAP 07/20/2016 Non morbid obesity due to excess calories 2016 Essential (primary) hypertension 07/20/2016 Encounters Date Type Department Care Team Description 07/24/2024 10:00 AM OVEN PRESS TENDER Office Visit [facility] - Pulmonology & Sleep Medicine - [place] [address] [place] [address] Lokesh Levy MD SULAIMAN on CPAP (Primary Dx); Non morbid obesity due to excess calories; Essential (primary) hypertension Discharge Disposition: Discharged to home or Selfcare 07/24/2024 Travel from Last 3 Months Immunizations Immunization Administration Dates Next Due Influenza Vaccine greater than 3 yrs 05/29/2016 Influenza, High-dose, Quadrivalent 05/09/2023,,05/10/2021 Influenza, Injectable, Quadrivalent 04/22/2019 Influenza, Quadrivalent, Adjuvanted 03/24/2020 Influenza, Trivalent, Adjuvanted, PF 04/29/2018 Influenza, high-dose, trivalent, PF 04/17/2024,1 07/24/2016 Family History Medical History Relation Name Comments Heart Disease Father Other-comment Mother NEOPLASM OF ST A[facility] Relation Name Status Comments Father Mother Social History Tobacco Use Types Packs/Day Years Used Date Smoking Tobacco: Former Cigarettes 2 30 Smokeless Tobacco: Never Tobacco Cessation:Counseling Given: Not Answered Alcohol Use Standard Drinks/Week Comments Yes 0 (1 standard drink = 0.6 oz pur e alcohol) socially Sexually Active Control Partners Comments Not Currently Sex and Gender Information Value Date Recorded Sex Assigned at Not on file Legal Sex Male 2:11 PM CDT Gender Identity Not on file Sexual Orientation Not on file Last Filed Vital Signs Vital Sign Reading Time Taken Comments Blood Pressure 132/84 07/24/2024 9:59 AM OVEN PRESS TENDER Pulse 78 07/24/2024 9:59 AM OVEN PRESS TENDER Temperature 36.6 C (97.9 F) 07/24/2024 9:59 AM OVEN PRESS TENDER Respiratory Rate 14 07/24/2024 9:59 AM OVEN PRESS TENDER Oxygen Saturation 98% 07/24/2024 9:59 AM OVEN PRESS TENDER Inhaled Oxygen Concentration - - Weight 99.5 kg (219 lb 4.8 oz) 07/24/2024 9:59 A M OVEN PRESS TENDER Height 176.5 cm (5' 9.5 ) 07/24/2024 9:59 AM OVEN PRESS TENDER Body Mass Index 31.92 07/24/2024 9:59 AM OVEN PRESS TENDER Plan of Treatment Upcoming Encounters Date Type Department Care Team (Late st Contact Info) Description 07/24/2025 10:00 AM OVEN PRESS TENDER Office Visit [facility] - Pulmonology & Sleep Medicine [facility] [address] [place] [address] Lokesh Levy MD [address] [place] [address] Health Maintenance Due Date Last Done Comments Hepatitis C Virus (HCV) Screening 1935 TdaP Immunization 1935 Respiratory Syncytial Virus (RSV) Immunization (Adult) (1 - 1-dose 75+ series) 2012 SARS-COV-2 Immunization ( season) 2024 05/10/2021, 10/30/2020, 09/01/2020, Additional history exists Pneumococcal Immunization (50+ years) Completed 06/14/2015, 04/07/2014, 04/07/2014, Additional history exists Pneumococcal Immunization Combined Discontinued 06/14/2015, 04/07/2014, 04/07/2014, Additional history exists Zoster Immunization Completed 05/27/2019, 03/24/2019, 07/14/2014 Influenza Immunization Completed , 05/09/2023, 04/25/2022, Additional history exists Hepatitis B Immunization Aged Out No longer eligible based on patient's age to complete this topic Meningococcal Immunization (ACWY) Aged Out No longer eligible based on patient's age to complete this topic Rotavirus Immunization Aged Out No lo nger eligible based on patient's age to complete this topic Insurance [facility] Care Teams Guard Chief Relationship Specialty Start Date End Date Davidson Arellano MD [address] [place] [address] PCP - General Internal Medicine 03/17/16 Lokesh Levy MD [address] [place] [address] Consulting Physician Pulmonary Disease 03/16/16
--- OUTSIDE RECORDS SUMMARY | 2024-10-07 10:46 | XMS_ITS | Clinical Summary ---
Author Organization [facility] Address [address] [place] [address] Phone Care Team Providers Care Chemist Instrumentation Name Role Phone Davidson Arellano MD Primary Care Provider [phone] Allergies No known active allergies Medications Medication Sig Dispensed Refills Start Date End Date Status allopurinol (ZYLOPRIM) 300 MG tablet Take 300 mg by mouth 1 (one) time each day 07/13/2020 Active amLODIPine (NORVASC) 10 MG tablet Take 10 mg by mouth 1 (one) time each day 05/22/2020 Active finasteride (PROSCAR) 5 MG tablet Take 5 mg by mouth 1 (one) time each day 05/19/2020 Active Euthyrox 50 MCG tablet Take 50 mcg by mouth 1 (one) time each day 04/20/2020 Active losartan (COZAAR) 100 MG tablet Take 100 mg by mouth 1 (one) time each day 06/18/2020 Active metoprolol tartrate (LOPRESSOR) 25 MG tablet Take 75 mg by mouth 2 (two) times a day 05/19/2020 Active Multiple Vitamins-Minerals (PreserVision AREDS) tablet Take by mouth 2 times daily Active omega-3 (FISH OIL) 1200 MG capsule Take 1,200 mg by mouth Active rosuvastatin (CRESTOR) 10 MG tablet Take 10 mg by mouth 1 (one) time each day 07/05/2020 Active traMADol (ULTRAM) 50 MG tablet Take 50 mg by mouth Active Eliquis 2.5 MG tablet 04/18/2021 Act jorgito Active Problems Problem Noted Date Diagnosed Date Epistaxis 08/03/2021 Overview (09/26/2021): Last Assessment & Plan: Restart CPAP in two days NO NOSE [...] Nasal saline spray (Simply saline, Little Remedies, [place], [place]) 2 second sprays or 2 squeezes into each nostril while looking down over the sink, do not need to sniff in. In 48 hours if no further bleeding 2-3 times daily for one month, then if nose bleeds improved, decrease to twice daily Bilateral lower limb edema 06/20/2021 Wound finding 11/27/2019 Cardiac pacemaker in situ 11/20/2019 Overview (07/19/2020): Biotronik Dual Pacemaker, Dx; Second Degree AVB-Mobitz II, Post op Afib. DOI 11/19/2019-Stephania. Biotronik remote home monitoring. History of coronary artery bypass grafting 11/03 Mobitz type II atrioventricular block 11/04/2019 Paroxysmal atrial fibrillation 10/21/2019 Coronary atherosclerosis 08/19/2019 Overview (07/19/2020): Added automatically from request for surgery [id number] Cardiovascular stress test abnormal 07/28/2019 Dyspnea on exertion 07/21/2019 Electrocardiogram abnormal 07/21/2019 Hyperlipidemia 07/21/2019 Stage 3 chronic kidney disease 07/21/2019 Essential (primary) hypertension 07/20/2016 Obstructive sleep apnea syndrome 07/20/2016 Simple obesity 07/20/2016 Arteriosclerotic vascular disease 10/04/2015 Surgical follow-up 09/09/2015 Carotid artery stenosis 09/24/2014 Immunizations Name Administration Dates Next Due Influenza (IM) Preservative Free 03/24/2020 Influenza LAIV (Nasal) 04/07/2020,04/22/2019 Influenza Split High Dose Pr eservative Free IM 05/10/2021,05/23/2017,04/11/2016,06/14 Influenza TIV (IM) 05/29/2016,05/29/2016 Influenza Trivalent Adjuvanted 04/29/2018 Influenza, Injectable, Quadrivalent 03/11,04/07/2020,03/24/2020,04/22 Influenza, Injectable, Quadr ivalent, Preservative Free 04/07/2014,05/13/2013,04/08/2013 Influenza, Quadrivalent 04/07/2020,04/22/2019 Influenza, Unspecified 03/24/2020 Pneumococcal Conjugate 04/07/2014,05/29/2006 Pneumococcal Conjugate 13-Valent 06/14/2015 Pneumococcal Polysaccharide 04/07/2014, 6 Sars-cov-2, Unspecified 10/30/2020 Zoster 07/14/2014 Zoster Recombinant 05/27/2019,03/24/2019 Family History Medical History Relation Comments Cancer Father Heart disease Father Heart failure Father Cancer Mother Relation Status Comments Father Mother Social History Tobacco Use Types Packs/Day Years Used Date Smoking Tobacco: Former Cigarettes 1980 Smokeless Tobacco: Never Alcohol Use Standard Drinks/Week Comments Yes 0 (1 standard drink = 0.6 oz pur e alcohol) 4 beers daily AUDIT-C Answer Date Recorded Q1: How often do you have a drink containing alcohol? 4 or more times a week 07/26/2020 Q2: How many drinks containi ng alcohol do you have on a typical day when you are drinking? 3 or 4 Q3: How often do you have si x or more drinks on one occasion? Not asked 07/26/2020 Sex and Gender Information Value Date Recorded Sex Assigned at Not on file Gender Identity Not on file Sexual Orientation Not on file Last Filed Vital Signs Vital Sign Reading Time Taken Comments Blood Pressure 134/80 04/03/2022 11:17 AM CDT Pulse - - Temperature 36.9 C (98.5 F) 04/03/2022 11:17 AM CDT Respiratory Rate 18 04/03/2022 11:17 AM CDT Oxygen Saturation - - Inhaled Oxygen Concentration - - Weight 97.5 kg (215 lb) 04/03/2022 11:17 AM CDT Height 177.8 cm (5' 10 ) 04/03/2022 11:17 AM CDT Body Mass Index 30.85 04/03/2022 11:17 AM CDT Plan of Treatment Health Maintenance Due Date Last Done Comments Influenza Vaccine (#1) 2024 0, 03/24/2020, 03/24/2020, Additional history exists Pneumococcal PPSV23/PCV13 65 + Years / High and Highest Risk Completed 06/14/2015, 04/07/2014, 05/29/2006 Care Teams Chemist Instrumentation Relationship Specialty Start Date End Date Davidson Arellano MD PCP - General Internal Medicine 05/31/20
[2024-10-07 14:31] LABS: Albumin Level 3.9 g/dL (3.5-5.1); Anion Gap 7 mmol/L (4-12); Blood Urea Nitrogen 42 mg/dL (9-20); Calcium 8.9 mg/dL (8.4-10.2); Carbon Dioxide 23 mmol/L (22-30); Chloride 106 mmol/L (98-107); Estimated Glomerular Filt Rate 20; Glucose 115 mg/dL (65-110); Phosphorus 3.8 mg/dL (2.5-4.5); Potassium 5.1 mmol/L (3.4-5.0); Sodium 136 mmol/L (137-145)
[2024-10-07 15:25] LABS: Creatinine Urine 67.5 mg/dL; Total Protein Urine Random 160 mg/dL; Ur Ttl Prot Creatinine Ratio 2.37 mg/mg (0-0.20)
== END 2024-10-07 09:53 | disposition home or self-care (01) ==
LOC: ANHGOSHLAB 09:53
PROVIDERS: PCP Internal Medicine; Visit Provider Internal Medicine Nephrology
DX: I12.9 Hypertensive chronic kidney disease with stage 1 through stage 4 chronic kidney disease, or unspecified chronic kidney disease (principal); N18.4 Chronic kidney disease, stage 4 (severe)
CPT/HCPCS: 36415; 80069; 82570; 84156

== ENCOUNTER 2025-02-05 09:51 | Outpatient (CLI) | payer MEDICARE, SELFPAY ==
--- OUTSIDE RECORDS SUMMARY | 2025-02-05 09:59 | XMS_ITS | Clinical Summary ---
Author Organization [facility] Tony carr [facility] Address [address] [place] [address] Care Team Providers Care Dairy Equipment Repairer Name Role Phone Davidson Arellano MD Primary Care Provider [phone] Allergies No known active allergies Medications allopurinoL [...] 81 mg by mouth daily. Active Fish Oil-[place]-3 Fatty Acids 360-1,200 mg Capsule Take 1 [...] Encounters Date Type Department Care Team Description 01/21/2025 External Device Data [facility] ABSTRACTION Provider, Abstract 01/20/2025 External Device Data [facility] ABSTRACTION Provider, Abstract 12/23/2024 External Device Data [facility] ABSTRACTION Provider, Abstract 12/02/2024 External Device Data [facility] ABSTRACTION Provider, Abstract 11/27/2024 External Device Data [facility]L ABSTRACTION Provider, Abstract 11/26/2024 External Device Data STL ABSTRACTION Provider, Abstract 11/25/2024 External Device Data [facility]L ABSTRACTION Provider, Abstract [...] on file Legal Sex Male 11:31 AM LEATHER CRAFTER Gender Identity Not on file Sexual Orientation [...] 10:03 AM CDT Height 177.8 cm (5' 10) 06/14/2022 11:57 AM LEATHER CRAFTER Body Mass Index 31.14 06/14/2022 11:57 AM LEATHER CRAFTER Plan of Treatment Upcoming Encounters Date Type Department Care Team (Late st Contact Info) Description 02/11/2025 1:00 PM CDT Office Visit [facility] Oncology and Hematology [facility] [address] [place] [address] Yong Dsouza MD [address] [facility] [address] [place] [address] Health Maintenance Due Date Last Done Comments DTAP/TDAP/TD VACCINES (1 - Tdap) 1954 Traditional Medicare (ACO) A nnual Wellness Visit 1954 RSV VACCINE (60+ or ) (1 - 1-dose 75+ series) 2012 INFLUENZA VACCINE (#1) 2025 3, 04/25/2022, 05/10/2021, Additional history exists PNEUMOCOCCAL VACCINE 50+ YEARS Completed 1 08/15/2014, 04/07/2014, 04/07/2014, Additional history exists ZOSTER VACCINE Completed 05/27/2019, 03/09, 07/14/2014 Insurance MEDICARE PART A AND B AETNA MEDICARE SUPP AESSI Care Teams Dairy Equipment Repairer Relationship Specialty Start Date End Date Davidson Arellano MD [address] [facility] [address] [place] [address] PCP - General Internal Medicine 10/09/22
--- OUTSIDE RECORDS SUMMARY | 2025-02-05 09:59 | XMS_ITS | Clinical Summary ---
Author Organization [facility] Address [address] [facility], [place] [address] Phone Care Team Providers Care Metal Sorter Name Role Phone Lokesh Levy MD Unavailable Davidson Arellano MD Primary Care Provider [phone] Allergies No known active allergies Medications Aspirin 81 MG Tablet Take 81 mg by mouth daily. Active Leblanc-3 Fatty Acids (FISH OIL) 1200 MG Capsule [...] excess calories 2016 Essential (primary) hypertension 07/20/2016 Immunizations Immunization Administration Dates Next Due Influenza Vaccine greater than 3 yrs 05/29/2016 Influenza, High-dose, Quadrivalent 05/09/2023,,05/10/2021 Influenza, Injectable, Quadrivalent 04/22/2019 Influenza, Quadrivalent, Adjuvanted 03/24/2020 Influenza, Trivalent, Adjuvanted, PF 04/29/2018 Influenza, high-dose, trivalent, PF 04/17/2024,1 07/24/2016 Family History Medical History Relation Name Comments Heart Disease Father Other-comment Mother NEOPLASM OF ST OMACH Relation Name Status Comments Father Mother Social [...] Comments Blood Pressure 132/84 07/24/2024 9:59 AM PRICE CLERK Pulse 78 07/24/2024 9:59 AM PRICE CLERK Temperature 36.6 C (97.9 F) 07/24/2024 9:59 AM PRICE CLERK Respiratory Rate 14 07/24/2024 9:59 AM PRICE CLERK Oxygen Saturation 98% 07/24/2024 9:59 AM PRICE CLERK Inhaled Oxygen Concentration - - Weight 99.5 kg (219 lb 4.8 oz) 07/24/2024 9:59 A M PRICE CLERK Height 176.5 cm (5' 9.5) 07/24/2024 9:59 AM PRICE CLERK Body Mass Index 31.92 07/24/2024 9:59 AM PRICE CLERK Plan of Treatment Upcoming Encounters Date Type Department Care Team (Late st Contact Info) Description 07/24/2025 10:00 AM PRICE CLERK Office Visit [facility] - Pulmonology & Sleep Medicine [facility] [address] [place] [address] Lokesh Levy MD [address] [place] [address] Health Maintenance Due Date Last Done Comments Hepatitis C Virus (HCV) Screening 1935 TdaP Immunization 1935 Respiratory Syncytial Virus (RSV) Immunization (Adult) (1 - 1-dose 75+ series) 2012 SARS-COV-2 Immunization ( season) 2024 05/10/2021, 10/30/2020, 09/01/2020, Additional history exists Influenza Immunization (#1) 03/09/202504/08, 05/09/2023, 04/25/2022, Additional history exists Pneumococcal Immunization (50+ years) Completed 06/14/2015, 04/07/2014, 04/07/2014, Additional history exists Pneumococcal Immunization Combined Discontinued 06/14/2015, 04/07/2014, 04/07/2014, Additional history exists Zoster Immunization Completed 05/27/2019, 03/24/2019, 07/14/2014 Hepatitis B Immunization Aged Out No longer eligible based on patient's age to complete this topic Human Papillomavirus (HPV) Immunization Aged Out No longer eligible based on patient's age to complete this topic Meningococcal Immunization (ACWY) Aged Out No longer eligible based on patient's age to complete this topic Rotavirus Immunization Aged Out No lo nger eligible based on patient's age to complete this topic Insurance MEDICARE AET[employer] SENIOR SUPPLEMENTAL Care Teams Metal Sorter Relationship Specialty Start Date End Date Davidson Arellano MD [address] [place] [address] PCP - General Internal Medicine 03/17/16 Lokesh Levy MD [address] [place] [address] Consulting Physician Pulmonary Disease 03/16/16
--- OUTSIDE RECORDS SUMMARY | 2025-02-05 09:59 | XMS_ITS | Referral Summary ---
Author Organization [facility] Address [address] [place] [address] Care Team Providers Care Vest Maker Name Role Phone Davidson Arellano MD Primary Care Provider [phone] Encounters Date Type Department Care Team Description 01/20/2025 8:00 AM CDT Ancillary Procedure [facility] [address] [place] [address] [place] [phone] Paroxysmal atrial fibrillation (HCC) [I48.0] (Primary Dx); Cardiac pacemaker in situ; AVB (atrioventricular block); Mobitz type 2 second degree heart block 12/30/2024 Telephone [facility] [address] [place] [address] [address] [place] [phone] Maye Castro MD 12/08/2024 10:30 AM CDT Office Visit [facility] [address] [place] [address] [address] [place] [phone] Maye Castro MD Hx of CABG (Primary Dx); Coronary artery disease involving [place] coronary artery of [place] heart without angina pectoris; Paroxysmal atrial fibrillation (HCC); Cardiac pacemaker in situ; Mixed hyperlipidemia from Last 3 Months Allergies No known active allergies Medications vitamins A,C,E-zinc-marketing copywriter per (OCUVITE) 7,160 unit- 113 mg-100 unit [...] (six) hours as needed for pain Active losartan (COZAAR) 100 mg tablet Take [...] once daily 90 tablet 2 4 Active azithromycin (ZITHROMAX) 250 mg tablet Take 2 tabs (500 mg) by mouth today, than 1 tab (250 mg) daily for 4 days. 6 tablet 5 Active apixaban (Eliquis) 2.5 mg tablet Take 1 tablet (2.5 mg total) by mouth 2 (two) times a day 180 tablet [address] (PROTONIX) 40 mg EC tablet Take 1 tablet by mouth twice daily 180 tablet 5 Active ferrous sulfate (FeroSuL) 325 mg (65 mg of elemental iron) tablet Take 1 tablet by mouth twice daily 180 tablet 5 Active amLODIPine (NORVASC) 10 mg tablet Take 1 tablet by mouth once daily 90 tablet 5 Active metoprolol tartrate (LOPRESSOR) 25 mg immediate release tablet TAKE 3 TABLETS BY MOUTH TWICE DAILY 540 tablet 5 Active FeroSuL 325 mg (65 mg iron) tablet Take 1 tablet by mouth twice daily 180 tablet 5 01/08/[address] (PROTONIX) 40 mg EC tablet Take 1 tablet by mouth twice daily 180 tablet 5 01/08/20 25 Discontinued amLODIPine (NORVASC) 10 mg tablet Take 1 tablet by mouth once daily 90 tablet 5 02/06/20 25 Discontinued metoprolol tartrate (LOPRESSOR) 25 mg immediate release tablet TAKE 3 TABLETS BY MOUTH TWICE DAILY 540 tablet 5 02/06/20 25 Discontinued Active Problems Problem Noted Date Diagnosed Date Helicobacter pylori infection 06/13/2022 Peptic ulcer disease 06/13/2022 Assessment & Plan (04/15/2024 11:28 AM CDT): No signs or symptoms of stomach disease or bleeding Epistaxis 08/03/2021 Assessment & Plan (08/03/2021 3:36 PM HIDE SALTER): Restart CPAP in two days NO NOSE [...] Nasal saline spray (Simply saline, Little Remedies, [place], [place]) 2 second sprays or 2 squeezes into [...] on anticoagulation Coronary artery disease invo lving [place] coronary artery of [place] heart without angina pectoris 08/22/2019 Overview (08/22/2019): Added automatically from request for surgery [id number] Assessment & Plan (10/14/2024 11:42 AM CDT): No chest pain Assessment & Plan (04/15/2024 11:28 AM CDT): Continue present Rx no signs or symptoms of angina Stage 3 chronic kidney disease 07/21/2019 Assessment & Plan (10/14/2024 11:42 AM CDT): Stable, followed by renal Assessment & Plan (04/15/2024 11:27 AM CDT): Stable and doing well at this time Mixed hyperlipidemia 07/21/2019 Assessment & Plan (10/14/2024 11:42 AM CDT): Continue as before. Assessment & Plan (04/15/2024 11:28 AM CDT): Stable. Surgical follow-up care 09/09/2015 Stenosis of carotid artery 09/24/2014 Assessment & Plan (10/14/2024 11:42 AM CDT): Stable, doing well Resolved Problems Problem Noted Date Diagnosed Date Resolved Date Hyperlipidemia 11/17/2020 06/20/2021 Second degree AV block, Mobitz type II 11/04/2019 06/20/2021 Coronary artery disease invo lving [place] coronary artery 08/19/2019 06/20/2021 Abnormal stress test 07/28/2019 021 Chest pain 07/21/2019 10/21/2019 PHAN (dyspnea on exertion) 07/21/2019 Abnormal EKG 07/21/2019 06/20/2021 Hypertension 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 07/21/2019 03/29/2020 Arteriosclerotic vascular disease 10/04/2015 06/20/2021 Immunizations Immunization Administration Dates Next Due Influenza LAIV (Nasal) 04/07/2020,04/22/2019 Influenza Virus Vaccine Trivalent Mdv 04/29/2018 Influenza, Quad, Adjuvantate d, Intramuscular 03/24/2020,03/24/2020 Influenza, Quadrivalent, Hig h Dose, Preservative Free, Intrr 05/09/2023,04/25/2022 Influenza, Quadrivalent, Spl it, Intramuscular 04/07/2020,04/07/2020,04/22/2019,04/22 Influenza, Quadrivalent, Spl it, Preservative Free, Intramuscular 04/07/2014,04/07/2014,05/13/2013,05/13,04/08/2013,04/08/2013 Influenza, Trivalent, High D ose, Split, Preservative Free, Intramuscular 04/17/2024,05/10/2021,05/23/2017,05/23,04/11/2016,04/11/2016,06/14/2015 ,06/14/2015 Influenza, Trivalent, IM (MDV) 05/29/2016,2015 Influenza, Trivalent, [...] on file Legal Sex Male 12:33 AM HIDE SALTER Gender Identity Male 10/20/2019 1:20 PM CDT Sexual Orientation Straight 10/20/2019 1: 20 PM CDT Last Filed Vital Signs Vital Sign Reading Time Taken Comments Blood Pressure 126/70 12/08/2024 10:19 AM CDT Pulse 83 12/08/2024 10:19 AM CDT Temperature 36.2 C (97.1 F) 08/03/2021 3:03 PM HIDE SALTER Respiratory Rate 16 08/02/2021 2:00 AM HIDE SALTER Oxygen Saturation 97% 12/08/2024 10: 19 AM CDT Inhaled Oxygen Concentration - - Weight 94.7 kg (208 lb 12.8 oz) 025 10:19 AM CDT Height 177.8 cm (5' 10) 12/08/2024 10: 19 AM CDT Body Mass Index 29.96 12/08/2024 10:19 AM CDT Plan of Treatment Not on file Procedures Procedure Name Priority Date/Time Associated Diagnosis Comments DEVICE CHECK - REMOTE Routine 01/20/2025 8:37 AM CDT Cardiac pacemaker in situ AVB (atrioventricular block) Mobitz type 2 second degree heart block from Last 3 Months Results * DEVICE CHECK - REMOTE (01/20/2025 8:37 AM CDT) Anatomical Region Laterality Modality Other Narrative 01/22/2025 1:04 PM CDT Biotronik Dual Pacemaker, Dx; Second Degree AVB-Mobitz II, Post op Afib. DOI 11/19/2019-Stephania. Biotronik remote home monitoring. Routine DDD Pacemaker remote. Normal device function. Battery function-Ok, 60% remaining battery life to CELY. Appropriate lead measurements noted. Presenting rhythm: AP-VS/AP-VS. AP-86%, AMMONIUM NITRATE NEUTRALIZER-10%. No atrial high rate episodes noted. No ventricular high rate episodes noted. Medications; Lopressor, ASA, Elliquis. See scanned report. Office pacemaker f/u 04/01/2025. Biotronik remote due 6 months. Shanna Almaguer, TOY Maye Castro MD [facility] C[facility] PROCEDURES Final Result from Last 3 Months Insurance [facility] [address]I [id number] MEDICARE Member Subscriber Plan / Payer ( fective 2002-Present) Name:Herve Villafuerte Member ID:[id number] Relation to Subscriber:Self Name:Herve Villafuerte Subscriber ID:[id number] Payer ID:[id number] Group ID:Not on file Type:MEDICARE [employer] Address: [id number] [place] [phone] T SENIOR SUPPLEMENT [facility] [id number] MEDICARE Member Subscriber Plan / Payer ( fective 2002-Present) Name:HERVE VILLAFUERTE JR Member ID:[id number] Relation to Subscriber:Self Name:Herve Villafuerte Subscriber ID:[id number] Payer ID:[id number] Group ID:Not on file Type:MEDICARE TRADITIONAL Address: [address] [place] [phone] AETNA SENIOR SUPPLEMENT MEDICARE [facility] [place] [id number] MEDICARE AETNA SENIOR SUPPLEMENT MEDICARE AETNA SENIOR SUPPLEMENT Advance Directives For more information, please contact: [phone] * Full Code (Latest Code Status on File) Date Activated Date Inactivated Comments 09/05/2019 6:41 PM 08/01/2021 11:04 PM * Full Code Date Activated Date Inactivated Comments 08/28/2019 12:36 PM 09/04/2019 6:57 PM Care Teams Vest Maker Relationship Specialty Start Date End Date Davidson Arellano MD PCP - General 06/13/11
--- OUTSIDE RECORDS SUMMARY | 2025-02-05 09:59 | XMS_ITS | Encounter Summary ---
Author Organization [facility] Address [address] [place] [address] Phone Care Team Providers Care Road Conductor Name Role Phone Davidson Arellano MD Primary Care Provider [phone] Encounter Details Date Type Department Care Team (Latest Contact Info) Description 10/31/2017 Orders Only [facility] CONVERSION Scanning, Provider Social History Tobacco Use Types Packs/Day Years Used Date Smoking Tobacco: Former Sex and Gender Information Value Date Recorded Sex Assigned at Not on file Legal Sex Male 12:33 AM MINING PLANT OPERATOR Gender Identity Male 10/20/2019 1:20 PM CDT [...] COVID: Suspected 07/27/2021 07/27/2021 07/27/2021 3:36 PM MINING PLANT OPERATOR COVID19 07/27/2021 07/27/2021 08/06/2021 3:05 AM MINING PLANT OPERATOR COVID: Recovered Comment:Added based on recent COVID infection. 08/06/2021 09/06/2021 12/04/2021 3:05 AM C DT documented as of this encounter Care Teams Road Conductor Relationship Specialty Start Date End Date Davidson Arellano MD PCP - General 06/13/11 documented as of this encounter
--- OUTSIDE RECORDS SUMMARY | 2025-02-05 09:59 | XMS_ITS | Clinical Summary ---
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 per (OCUVITE) 7,160 unit- 113 mg-100 unit [...] 08/03/2021 Assessment & Plan (08/03/2021 3:36 PM ASSISTANT HVAC MECHANIC): Restart CPAP in two days NO NOSE [...] Nasal saline spray (Simply saline, Little Remedies, [place], [place]) 2 second sprays or 2 squeezes into [...] on anticoagulation Coronary artery disease invo lving [place] coronary artery of [place] heart without angina pectoris 08/22/2019 Overview (08/22/2019): Added automatically from request for surgery [id number] Assessment & Plan (10/14/2024 11:42 AM CDT): [...] 11/04/2019 06/20/2021 Coronary artery disease invo lving [place] coronary artery 08/19/2019 06/20/2021 Abnormal stress test 07/28/2019 021 Chest pain 07/21/2019 10/21/2019 PHAN (dyspnea on exertion) 07/21/2019 Abnormal EKG 07/21/2019 06/20/2021 Hypertension 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 07/21/2019 03/29/2020 Arteriosclerotic vascular disease 10/04/2015 06/20/2021 Encounters Date Type Department Care Team Description 01/20/2025 8:00 AM CDT Ancillary Procedure [facility] [address] [place] [address] [place] [phone] Paroxysmal atrial fibrillation (HCC) [I48.0] (Primary Dx); Cardiac pacemaker in situ; AVB (atrioventricular block); Mobitz type 2 second degree heart block 12/30/2024 Telephone [facility] [address] [place] [phone] Maye Castro MD 12/08/2024 10:30 AM CDT Office Visit [facility] [address] [facility] [place] [address] [place] [phone] Maye Castro MD Hx of CABG (Primary Dx); Coronary artery disease involving [place] coronary artery of [place] heart without angina pectoris; Paroxysmal atrial fibrillation (HCC); Cardiac pacemaker in situ; Mixed hyperlipidemia from Last 3 Months Immunizations Immunization Administration [...] 07/08/2018 CAROTID ENDARTERECTOMY 07/09/2010 - 07/08/2011 Right [facility] CORONARY ARTERY BYPASS GRAFT 08/28/2019 CABG x 3 Medical History Medical History Date Comments Hypertension High cholesterol Ulcer (traumatic) of oral mucosa Thyroid disease Gout Sleep apnea Chronic kidney disease Stage III /IV, duration unknown Stroke (HCC) 2010 Status post cheney tid endarterectomy no symptoms since Coronary artery disease Heart disease Family History Medical History Relation Name Comments Cancer Father Herve Villafuerte, Sr Family his tory of malignant neoplasm - (Added by TW Conv) Heart failure Father Herve Villafuerte Sr Family hi story of congestive heart failure - (Added by TW Conv) Cancer Mother Anupama Villafuerte Family histo ry of malignant neoplasm - (Added by TW Conv) Relation Name Status Comments Father Herve Villafuerte Sr (Age 80) HEART DISEASE Mother Anupama Villafuerte [...] on file Legal Sex Male 12:33 AM ASSISTANT HVAC MECHANIC Gender Identity Male 10/20/2019 1:20 PM CDT Sexual Orientation Straight 10/20/2019 1: 20 PM CDT Obstetrics History Last Filed Vital Signs Vital Sign Reading Time Taken Comments Blood Pressure 126/70 12/08/2024 10:19 AM CDT Pulse 83 12/08/2024 10:19 AM CDT Temperature 36.2 C (97.1 F) 08/03/2021 3:03 PM ASSISTANT HVAC MECHANIC Respiratory Rate 16 08/02/2021 2:00 AM ASSISTANT HVAC MECHANIC Oxygen Saturation 97% 12/08/2024 10: 19 AM CDT Inhaled Oxygen Concentration - - Weight 94.7 kg (208 lb 12.8 oz) 025 10:19 AM CDT Height 177.8 cm (5' 10) 12/08/2024 10: 19 AM CDT Body Mass Index 29.96 12/08/2024 10:19 AM CDT Plan of Treatment Health Maintenance Due Date Last Done Comments Depression Screening 1935 Fall Risk Assessment 1935 DTaP/Tdap/Td Vaccine (1 - Tdap) 1946 Hepatitis B Screening 12/22/1953 Well Visit 65+ 2002 Covid-19 Vaccine (2023-2 5 season) 2024 10/30/2020, 09/01/2020, 08/11/2020 Influenza Vaccine (#1) 2025 , 05/09/2023, 04/25/2022, Additional history exists Pneumococcal vaccine 65+ Completed [...] lead measurements noted. Presenting rhythm: AP-VS/AP-VS. AP-86%, WOOD SETTER-10%. No atrial high rate episodes noted. No ventricular high rate episodes noted. Medications; Lopressor, ASA, Elliquis. See scanned report. Office pacemaker f/u 04/01/2025. Biotronik remote due 6 months. Shanna Almaguer, RN Maye Castro MD CV CARDIAC SERVICES PROCEDURES Final Result from Last 3 Months Insurance MEDICARE AET SENIOR SUPPLEMENT T SENIOR SUPPLEMENT [facility] [place] [id number] MEDICARE AETNA SENIOR SUPPLEMENT MEDICARE AETNA SENIOR SUPPLEMENT Advance Directives For more information, please contact: [phone] * Full Code (Latest Code Status on File) Date Activated Date Inactivated Comments 09/05/2019 6:41 PM 08/01/2021 11:04 PM * Full Code Date Activated Date Inactivated Comments 08/28/2019 12:36 PM 09/04/2019 6:57 PM Care Teams Skull Chopper Relationship Specialty Start Date End Date Davidson Arellano MD PCP - General 06/13/11
--- OUTSIDE RECORDS SUMMARY | 2025-02-05 09:59 | XMS_ITS | Continuity of Care Document ---
Author Organization [facility] Address [address] [facility] sandra Colunga [address] [place] [address] Phone Care Team Providers Care Molten Iron Pourer Name Role Phone Karenmonet Master Unavailable Unavailable [...] Providers Copied on Encounter Office/outpat ient Visit, [facility], [address] [place] [address] [address], [place], [place], [id number], tel:[phone] [place] [address] No Information 0-201 0 Nazario Thao. [facility] , [address], [place], [place], [facility], [place]. tel:[phone] Referring Provider: Yudy [facility] [address], [place], [facility]. tel:[phone] Office/outpat ient Visit, [facility], [address] [place] [address] [address], [place], [place], [id number], tel:[phone] [place] [address] No Information 3-201 0 Nazario Thao. [facility] [address], [address], [place], [facility], [place]. tel:[phone] Referring Provider: Yudy [facility] [address], [place], [facility]. tel:[phone] Office/outpat ient Visit, [facility], [address] [place] [address] [address], [place], [place], [address], [place] tel:[phone] [place] [address] No Information 5200 9 Nazario Thao. [facility] [address], [place], [facility], [place]. tel:[phone] Referring Provider: Yudy [facility] [address], [place], [facility]. tel:[phone] Office/outpat ient Visit, [facility], [address] [place], [place] [address]st [address], [place], [place], [address], [place] tel:[phone] SEC [facility] No Information Apr- 5-200 8 Nazario Thao. [address] [facility] , [address], [place], [facility], [place]. tel:[phone] Referring Provider: Master Emanuel, [facility] [address], [place], [address]. tel:[phone] 7969 [facility], [address], [place], [place], [address], [place] tel:[phone] [facility] No Information 1-200 8 [employer] . [address] [facility], [address], [place], [place], [address], [place]. tel:[phone] Referring Provider: Master Emanuel, [facility] [address], [place], [facility]. tel:[phone] g Provider: Erika Perez, [address] [place], [address]. tel:[phone] Office/outpat ient Visit, [facility], [address], [place], [place], [address], [place] tel:[phone] [facility] No Information Oct-0 9-200 8 Nazario Thao. [facility] , [address], [place], [facility], [place]. tel:[phone] Referring Provider: Al Emanuel, [address], [place], [address]. tel:[phone] [facility], [address], [place], [place], [address], [place] tel:[phone] [facility] No Information 8-200 7 Fabienne Panchal. [address] [place], [address], [place]. tel:[phone] Referring Provider: Abdulkadir Lux, 12 [facility], [place], [address]. tel:[phone] [facility], [address], [place], [place], [address], [place] tel:[phone] SEC [facility] No Information 2200 7 [place] [address], [address], [place], [place], [address], [place]. tel:[phone] Referring Provider: Yudy [facility] [address], [place], [address]. tel:[phone] [facility], [address], [place], [place], [address], [place] tel:[phone] SEC [facility] No Information 3200 7 [place] [address], [address], [place], [place], [address], [place]. tel:[phone] Referring Provider: Yudy Rod[facility] [address], [place], [address]. tel:[phone] [facility], [address], [place], [place], [address], [place] tel:[phone] SEC [facility] No Information 9200 7 [place] [address], [address], [place], [place], [address], [place]. tel:[phone] Referring Provider: Master Emanuel [address], [place], [address]. tel:[phone] [facility], [address], [place], [place], [address], [place] [phone] SEC [facility] No Information Kt-2 2-200 7 [place] [address], [address], [place], [place], [address], [place]. tel:[phone] Referring Provider: Yudy [facility]uez [facility] [address], [place], [address]. tel:[phone] [facility], [address] [place] [address] [address], [place], [place], [address], [place] tel:[phone] SEC [facility] No Information Dec-1 9-200 7 [place] [address], [address], [place], [place], [address], [place]. tel:[phone] Referring Provider: Yudy [facility] [address], [place], [address]. tel:[phone] 1922 [facility], [address] [place] [address] [address], [place], [place], [address], [place] tel:[phone] [facility] [place] No Information 1 4-200 7 [place]. [address] [place] [address] [employer] [facility], [address], [place], [place], [address], [place]. tel:[phone] Referring Provider: Yudy [facility] [address], [place], [address]. tel:[phone] Office/outpat ient Visit, [facility], [address] [place] [address] [address], [place], [place], [address], [place] tel:[phone] SEC [facility] No Information 8-200 7 [place]. [address] [place] [address], [address], [place], [place], [address], [place]. tel:[phone] Referring Provider: Yudy Rod[facility]guez [facility] [address], [place], [address]. tel:[phone] 5924 [facility], [address] [place] [address] [address], [place], [place], [address], [place] tel:[phone] [facility] No Information Oct- 3-200 7 Nazario Thao. [address] , [address], [place], [address], [place]. tel:[phone] Office/outpat ient Visit, [facility], [address], [place], [place], [address], [place] tel:[phone] [facility] No Information Mar-0 8-200 7 Fabienne Panchal. [address] [place], [address], [place]. tel:[phone] Family History Family Member Type Diagnosis Age At Onset No Information Payers Payer name Insurance type Covered green party ID Authoriza tiwade(s) Medicare [facility] [id number] Social History Type Description Quantity Date Captured [...]
--- OUTSIDE RECORDS SUMMARY | 2025-02-05 09:59 | XMS_ITS | Clinical Summary ---
Author Organization [facility] Address [address] [place] [address] Phone Care Team Providers Care Weigh And Charge Worker Name Role Phone Davidson Arellano MD Primary Care Provider [phone] Allergies No known active allergies Medications allopurinol (ZYLOPRIM) 300 MG tablet Take 300 [...] (two) times a day 05/19/2020 Active Multiple Vitamins-Mineral s (PreserVision AREDS) tablet Take by mouth 2 times daily Active omega-3 (FISH OIL) 1200 MG capsule Take 1,200 mg by mouth Active rosuvastatin (CRESTOR) 10 MG tablet Take 10 mg by mouth 1 (one) time each day 07/05/2020 Active traMADol (ULTRAM) 50 MG tablet Take 50 mg by mouth Active Eliquis 2.5 MG tablet 04/18/2021 Active Active Problems Problem Noted Date Diagnosed [...] Nasal saline spray (Simply saline, Little Remedies, [place], [place]) 2 second sprays or 2 squeezes into [...] (07/19/2020): Added automatically from request for surgery [id number] Cardiovascular stress test abnormal 07/28/2019 Dyspnea on exertion 07/21/2019 Electrocardiogram abnormal 07/21/2019 Hyperlipidemia 07/21/2019 Stage 3 chronic kidney disease 07/21/2019 Essential (primary) hypertension 07/20/2016 Obstructive sleep apnea syndrome 07/20/2016 Simple obesity 07/20/2016 Arteriosclerotic vascular disease 10/04/2015 Surgical follow-up 09/09/2015 Carotid artery stenosis 09/24/2014 Immunizations Immunization Administration Dates Next Due Influenza (IM) Preservative [...] at Not on file Legal Sex Male 9:[address] [facility] Gender Identity Not on file Sexual Orientation [...] 11:17 AM CDT Height 177.8 cm (5' 10) 04/03/2022 11:17 AM CDT Body Mass Index 30.85 04/03/2022 11:17 AM CDT Plan of Treatment Health Maintenance Due Date Last Done Comments Influenza Vaccine (#1) 2025 0, 03/24/2020, 03/24/2020, Additional history exists Pneumococcal PPSV23/PCV13 65 + Years / Low and Medium Risk Completed 06/14/2015, 04/07/2014, 05/29/2006 [place] [id number] AET Care Teams Weigh And Charge Worker Relationship Specialty Start Date End Date Davidson Arellano MD PCP - General Internal Medicine 05/31/20
[2025-02-05 10:09] LABS: Hematocrit 35.6 % (42.0-52.0); Hemoglobin 12.0 g/dL (14.0-18.0); Mean Corpuscular HGB Conc 33.7 g/dl (32-36); Mean Corpuscular Hemoglobin 34.8 pg (26-34); Mean Corpuscular Volume 103.2 fl (80-100); Platelet Count Result 196 k/mm3 (150-375); Red Blood Count 3.45 M/mm3 (4.6-6.20); White Blood Count 5.6 K/mm3 (4.5-10.0)
[2025-02-05 12:06] LABS: Iron 83 ug/dL (49-181)
[2025-02-05 12:07] LABS: Anion Gap 10 mmol/L (4-12); Blood Urea Nitrogen 38 mg/dL (9-20); Calcium 9.0 mg/dL (8.4-10.2); Carbon Dioxide 21 mmol/L (22-30); Chloride 105 mmol/L (98-107); Estimated Glomerular Filt Rate 20; Glucose 112 mg/dL (65-110); Potassium 5.1 mmol/L (3.4-5.0); Sodium 136 mmol/L (137-145)
[2025-02-05 12:19] LABS: Percent Iron Saturation 37 % (20-50)
[2025-02-05 12:50] LABS: Ferritin 141.00 ng/mL (11.1-264)
== END 2025-02-05 09:52 | disposition home or self-care (01) ==
LOC: ANHLAB 09:52
PROVIDERS: PCP Internal Medicine; Visit Provider Internal Medicine Hematology & Oncology
DX: D64.9 Anemia, unspecified (principal)
CPT/HCPCS: 36415; 80048; 82728; 83540; 83550; 85027

== ENCOUNTER 2025-04-10 09:47 | Outpatient (CLI) | payer MEDICARE, SELFPAY ==
--- OUTSIDE RECORDS SUMMARY | 2010-05-18 04:15 | XMS_ITS | Continuity of Care Document ---
Author Organization [employer] [facility] Address [address] [facility] sandra Colunga [address] [place] [phone] Phone Care Team Providers Care Refuse Laborer Name Role Phone Karenmoent Master Unavailable Unavailable Procedures Procedure Date Office/outpatient Visit, Est Dilated Macular Exam Performed 10 Counseling For Antioxidant Supplements N Office/outpatient Visit, Est Dilated Macular Exam Performed 10 Counseling For Antioxidant Supplements J Office/outpatient Visit, Est Dilated Macular Exam Performed 09 Counseling For Antioxidant Supplements A No Script Office/outpatient Visit, Est Dilated Macular Exam Performed 08 Progressive Lens, Plastic Tint Plastic, Non-Tari Tax - Medical Office/outpatient Visit, Est Dilated Macular Exam Performed 08 Refraction Eye Exam Established Pt Oct Ophthalmoscopy, Subsequent Oct Ophthalmoscopy, Subsequent Oct Visual Functional Status Assessed AREDS Formula Prescribed/Recommended Oct - Dilated Macular Exam Performed 07 Eye Exam Established Pt Visual Functional Status Assessed Post-op Follow-up Visit Post-op Follow-up Visit Post-op Follow-up Visit Post-op Follow-up Visit Pterygium Excison W/Graft Office/outpatient Visit, Est Eye Exam Established Pt Office/outpatient Visit, Est Ophthalmoscopy, Subsequent Ophthalmoscopy, Subsequent Advance Directives Directive Yes / No Effective Date File Name No Information Encounters Encounter Description Practice Location Reason(s) For Visit Diagnoses Date Provider Providers Copied on Encounter Office/outpat ient Visit, [facility], [address] [place] [address] [address], [place], [place], [id number], tel:[phone] [place] [address] No Information 0-201 0 Nazario Thao. [facility] , [address], [place], [place], [facility], [place]. tel:[phone] Referring Provider: Yudy Rodríguez [facility] [address], [place], [place], [facility]. tel:[phone] Office/outpat ient Visit, [facility], [address] [place] [address] [address], [place], [place], [id number], tel:[phone] [place] [address] No Information 3-201 0 Nazario Thao. [facility] [address], [address], [place], [facility], [place]. tel:[phone] Referring Provider: Yudy Rodríguez [facility] [address], [place], [facility]. tel:[phone] Office/outpat ient Visit, [facility], [address] [place] [address] [address], [place], [place], [address], [place] tel:[phone] [place] [address] No Information 5200 9 Nazario Thao. Yudy [facility] [address], [place], [facility], [place]. tel:[phone] Referring Provider: Yudy Rodríguez [facility] [address], [place], [facility]. tel:[phone] Office/outpat ient Visit, [facility], [address] [place], [place] [address]st [address], [place], [place], [address], [place] tel:[phone] SEC [facility] No Information Apr- 5-200 8 Nazario Thao. 2421 [facility] , [address], [place], [facility], [place]. tel:[phone] Referring Provider: Master Emanuel, 242Yahir [facility] [address], [place], [address]. tel:[phone] [facility], [address], [place], [place], [address], [place] tel:[phone] [facility] No Information 1-200 8 [employer] . [address] [facility], [address], [place], [place], [address], [place]. tel:[phone] Referring Provider: Master Emanuel, [address] [facility] [address], [place], [facility]. tel:[phone] g Provider: Erika Perez, [address] [place], [address]. tel:[phone] Office/outpat ient Visit, [facility], [address], [place], [place], [address], [place] tel:[phone] [facility] No Information Oct-0 9-200 8 Nazario Thao. [facility] , [address], [place], [facility], [place]. tel:[phone] Referring Provider: Al Emanuel, [address], [place], [address]. tel:[phone] [facility], [address], [place], [place], [address], [place] tel:[phone] [facility] No Information 8-200 7 Fabienne Panchal. [address] [place], [address], [place]. tel:[phone] Referring Provider: Abdulkadir Lux, 12 [facility], [place], [address]. tel:[phone] [facility], [address], [place], [place], [address], [place] tel:[phone] [facility] [place] No Information 2200 [address] [place] [address], [address], [place], [place], [address], [place]. tel:[phone] Referring Provider: Yudy Rod[facility] [address], [place], [address]. tel:[phone] [facility], [address], [place], [place], [address], [place] tel:[phone] SEC [place] No Information 3200 [address] [place] [address], [address], [place], [place], [address], [place]. tel:[phone] Referring Provider: Yudy Rodríguez [facility] [address], [place], [address]. tel:[phone] [facility], [address], [place], [place], [address], [place] tel:[phone] SEC [place] No Information 9200 [address] [place] [address], [address], [place], [place], [address], [place]. tel:[phone] Referring Provider: Master Emanuel [address] [facility] [address], [place], [address]. tel:[phone] [facility], [address], [place], [place], [address], [place] [phone] SEC [place] No Information Kt-2 2-200 7 [place] [address], [address], [place], [place], [address], [place]. tel:[phone] Referring Provider: Yudy Rodríguez [facility] [address], [place], [address]. tel:[phone] [facility], [address] [place] [address] [address], [place], [place], [address], [place] tel:[phone] SEC [place] No Information Dec-1 9-200 7 [place], [address], [place], [place], [address], [place]. tel:[phone] Referring Provider: Yudy Rodríguez [facility] [address], [place], [address]. tel:[phone] [facility], [address] [place] [address] [address], [place], [place], [address], [place] tel:[phone] [facility] [place] No Information 1 4-200 7 [place]. [address] [place] [address] [employer] [facility], [address], [place], [place], [address], [place]. tel:[phone] Referring Provider: Yudy Rodríguez [facility] [address], [place], [address]. tel:[phone] Office/outpat ient Visit, Est [facility], [address] [place] [address] [address], [place], [place], [address], [place] tel:[phone] SEC [place] No Information 8-200 7 [place] [place] [address], [address], [place], [place], [address], [place]. tel:[phone] Referring Provider: Yudy Rodríguez [facility] [address], [place], [address]. tel:[phone] [facility], [address] [place] [address] [address], [place], [place], [address], [place] tel:[phone] [facility] No Information Oct- 3-200 7 Nazario Thao. [address] , [address], [place], [address], [place]. tel:[phone] Office/outpat ient Visit, [facility], [address], [place], [place], [address], [place] tel:[phone] [facility] No Information Mar-0 8-200 7 Fabienne Panchal. [address] [place], [address], [place]. tel:[phone] Family History Family Member Type Diagnosis Age At Onset No Information Payers Payer name Insurance type Covered libertarian ID Authoriza tiwade(s) Medicare [facility] [id number] Social History Type Description Quantity Date Captured Comments Sex Male Smoking Status No Information Chief Complaint And Reason For Visit No Information Reason For Referral Reason For Referral No Information History Of Present Illness Encounter Date Complaint History Of Prese nt Illness No Information Functional Status Date Functional Assessmen t No Information Instructions Date Instruction Additional Infor mation No Information Assessments Type Assessment Date No Information Patient Care Teams Name Effective Dates (start - stop) Status Members No Information
--- OUTSIDE RECORDS SUMMARY | 2025-04-10 09:53 | XMS_ITS | Encounter Summary ---
Author Organization [facility] [employer] [facility] Address [address] [place] [address] Phone Care Team Providers Care Electronic Instrument Trades Worker Name Role Phone Davidson Arellano MD Primary Care Provider [phone] Encounter Details Date Type Department Care Team (Latest Contact Info) Description 10/31/2017 Orders Only [facility] CONVERSION Scanning, Provider Social History Tobacco Use Types Packs/Day Years Used Date Smoking Tobacco: Former Sex and Gender Information Value Date Recorded Sex Assigned at Not on file Legal Sex 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 08/06/2021 09/06/2021 12/04/2021 3:05 AM C DT documented as of this encounter Care Teams Electronic Instrument Trades Worker Relationship Specialty Start Date End Date Davidson Arellano MD PCP - General 06/13/11 documented as of this encounter
--- OUTSIDE RECORDS SUMMARY | 2025-04-10 09:53 | XMS_ITS | Clinical Summary ---
Author Organization [facility] Address [address] [place] [address] Phone Care Team Providers Care Electronic Tester Name Role Phone Davidson Arellano MD Primary Care Provider [phone] Allergies No known active allergies Medications allopurinol [...] Nasal saline spray (Simply saline, Little Remedies, [place], [place]) 2 second sprays or 2 squeezes into [...] (07/19/2020): Added automatically from request for surgery [id number] Cardiovascular stress test abnormal 07/28/2019 Dyspnea on [...] on file Legal Sex Male 9:32 AM [facility] Gender Identity Not on file Sexual [...] Risk Completed 06/14/2015, 04/07/2014, 05/29/2006 [place] [id number] AET Care Teams Electronic Tester Relationship Specialty Start Date End Date Davidson Arellano MD PCP - General Internal Medicine 05/31/20
--- OUTSIDE RECORDS SUMMARY | 2025-04-10 09:53 | XMS_ITS | Clinical Summary ---
Author Organization [facility] Address [address] [place] [address] Care Team Providers Care Senior Ui Designer Name Role Phone Davidson Arellano MD Primary Care Provider [phone] Allergies No known active allergies Medications vitamins A,C,E-zinc-endoscopy technican per (OCUVITE) 7,160 unit- 113 mg-100 unit [...] once daily 90 tablet 3 4 Active azithromycin (ZITHROMAX) 250 mg tablet Take 2 tabs (500 mg) by mouth today, than 1 tab (250 mg) daily for 4 days. 6 tablet 5 Active apixaban (Eliquis) 2.5 mg tablet Take 1 tablet (2.5 mg total) by mouth 2 (two) times a day 180 tablet 3 5 Active amLODIPine (NORVASC) 10 mg tablet Take 1 tablet by mouth once daily 90 tablet 5 Active metoprolol tartrate (LOPRESSOR) 25 mg immediate release tablet TAKE 3 TABLETS BY MOUTH TWICE DAILY 540 tablet 5 Active levothyroxine (SYNTHROID) 50 mcg tablet Take 1 tablet by mouth once daily 90 tablet 1 5 Active rosuvastatin (CRESTOR) 10 mg tablet Take 1 tablet by mouth once daily 90 tablet 1 5 Active Iron, ferrous sulfate, 325 mg (65 mg iron) tablet Take 1 tablet by mouth twice daily [address] (PROTONIX) 40 mg EC tablet Take 1 tablet by mouth twice daily 180 tablet 5 Active rosuvastatin (CRESTOR) 10 mg tablet Take 1 tablet by mouth once daily 90 tablet 2 4 03/18/20 25 Discontinued levothyroxine (SYNTHROID) 50 mcg tablet Take 1 tablet by mouth once daily 90 tablet 2 4 03/18/[address] (PROTONIX) 40 mg EC tablet Take 1 tablet by mouth twice daily 180 tablet 5 04/01/20 25 Discontinued ferrous sulfate (FeroSuL) 325 mg (65 mg of elemental iron) tablet Take 1 tablet by mouth twice daily 180 tablet 5 04/01/20 25 Discontinued Active Problems Problem Noted Date Diagnosed Date Helicobacter pylori infection 06/13/2022 Peptic ulcer disease 06/13/2022 Assessment & Plan (04/15/2024 11:28 AM CDT): No signs or symptoms of stomach disease or bleeding Epistaxis 08/03/2021 Assessment & Plan (08/03/2021 3:36 PM COST ACCOUNTING MANAGER): Restart CPAP in two days NO NOSE [...] Nasal saline spray (Simply saline, Little Remedies, [place], [place]) 2 second sprays or 2 squeezes into [...] on anticoagulation Coronary artery disease invo lving [place] coronary artery of [place] heart without angina pectoris 08/22/2019 Overview (08/22/2019): Added automatically from request for surgery [id number] Assessment & Plan (10/14/2024 11:42 AM CDT): [...] 11/04/2019 06/20/2021 Coronary artery disease invo lving [place] coronary artery 08/19/2019 06/20/2021 Abnormal stress test 07/28/2019 021 Chest pain 07/21/2019 10/21/2019 PHAN (dyspnea on exertion) 07/21/2019 Abnormal EKG 07/21/2019 06/20/2021 Hypertension 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 07/21/2019 03/29/2020 Arteriosclerotic vascular disease 10/04/2015 06/20/2021 Encounters Date Type Department Care Team Description 04/01/2025 10:00 AM CDT Ancillary Procedure [facility] Cardiology [address] [place] [phone] Cardiac pacemaker in situ; Paroxysmal atrial fibrillation (HCC); Second degree AV block, Mobitz type II 04/01/2025 Orders Only [facility] Cardiology [address] [place] [address] [place] [phone] Maye Castro MD Cardiac pacemaker in situ (Primary Dx); Paroxysmal atrial fibrillation (HCC); Mobitz type 2 second degree heart block 02/05/2025 Orders Only [facility] [address] [facility] [address] [place] [phone] Davidson Arellano MD 01/20/2025 8:00 AM CDT Ancillary Procedure [facility] Cardiology [address] [place] [address] [place] [phone] Paroxysmal atrial fibrillation (HCC) [I48.0] (Primary Dx); Cardiac pacemaker in situ; AVB (atrioventricular block); Mobitz type 2 second degree heart block from Last 3 Months Immunizations Immunization Administration [...] 07/08/2018 CAROTID ENDARTERECTOMY 07/09/2010 - 07/08/2011 Right [facility] CORONARY ARTERY BYPASS GRAFT 08/28/2019 CABG x 3 Medical History Medical History Date Comments Hypertension High cholesterol Ulcer (traumatic) of oral mucosa Thyroid disease Gout Sleep apnea Chronic kidney disease Stage III /IV, duration unknown Stroke (HCC) 2010 Status post cheney tid endarterectomy no symptoms since Coronary artery disease Heart disease Family History Medical History Relation Name Comments Cancer Father Herve Villafuerte Sr Family his tory of malignant neoplasm [...] on file Legal Sex Male 12:33 AM COST ACCOUNTING MANAGER Gender Identity Male 10/20/2019 1:20 PM CDT Sexual Orientation Straight 10/20/2019 1: 20 PM CDT Obstetrics History Last Filed Vital Signs Vital Sign Reading Time Taken Comments Blood Pressure 126/70 12/08/2024 10:19 AM CDT Pulse 83 12/08/2024 10:19 AM CDT Temperature 36.2 C (97.1 F) 08/03/2021 3:03 PM COST ACCOUNTING MANAGER Respiratory Rate 16 08/02/2021 2:00 AM COST ACCOUNTING MANAGER Oxygen Saturation 97% 12/08/2024 10: 19 AM [...] Well Visit 65+ 2002 Covid-19 Vaccine (4 - 2024-2 6 season) 2025 10/30/2020, 09/01/2020, 08/11/2020 Influenza Vaccine (#1) 2025 , 05/09/2023, 04/25/2022, Additional history exists Pneumococcal vaccine 65+ Completed 015, 06/14/2015, 04/07/2014, Additional history exists Zoster Vaccine Completed 05/27/2019, 05/09, 03/24/2019, Additional history exists Procedures Procedure Name Priority Date/Time Associated Diagnosis Comments DEVICE CHECK - IN OFFICE Routine 04/01/2025 9:48 AM CDT Cardiac pacemaker in situ Paroxysmal atrial fibrillation (HCC) Second degree AV block, Mobitz type II SCAN - LABS 02/05/2025 2:47 PM CDT SCAN - LABS 02/05/2025 11:26 AM CDT DEVICE CHECK - REMOTE Routine 01/20/2025 8:37 AM CDT Cardiac pacemaker in situ AVB (atrioventricular block) Mobitz type 2 second degree heart block from Last 3 Months Results * DEVICE CHECK - IN OFFICE (04/01/2025 9:48 AM CDT) Anatomical Region Laterality Modality Other Narrative 04/01/2025 6:55 PM CDT Biotronik Dual Pacemaker, Dx; Second Degree AVB-Mobitz II, Post op Afib. DOI 11/19/2019-Stephania. Biotronik remote home monitoring. Supervising MD: Dr Marrero. Office DDD Pacemaker evaluation demonstrated appropriate device function. Battery function-Ok, 4.0 years 3 months estimated longevity to CELY. Appropriate lead measurements noted. Presenting rhythm-APVP/ASVS (SR) 68 bpm with first degree AVB. AP-87%, CROWN AND BRIDGE TECHNICIAN-10%. 10 mode switch episodes recorded. Longest duration 2 1/2 hours occurred on 08/24/2024. IEGM's AT/AF with ventricular rates 70-82 bpm. No ventricular high rate episodes noted. No programming changes made to device settings. See scanned report. Medications; ASA 81 mg, Eliquis, Lopressor. Office pacemaker f/u 06/23/2026. Biotronik remote f/u 07/07/2025. Shanna Almaguer RN us Maye Castro MD [facility] PROCEDURES Final Result * SCAN - LABS (02/05/2025 2:47 PM CDT) Davidson Arellano MD Final Result * SCAN - LABS (02/05/2025 11:26 AM CDT) us Davidson Arellano MD Final Result * DEVICE CHECK - REMOTE (01/20/2025 8:37 AM CDT) Anatomical Region Laterality Modality Other Narrative 01/22/2025 1:04 PM CDT Biotronik Dual Pacemaker, Dx; Second Degree AVB-Mobitz II, Post op Afib. DOI 11/19/2019-Stephania. Biotronik remote home monitoring. Routine DDD Pacemaker remote. Normal device function. Battery function-Ok, 60% remaining battery life to CELY. Appropriate lead measurements noted. Presenting rhythm: AP-VS/AP-VS. AP-86%, CROWN AND BRIDGE TECHNICIAN-10%. No atrial high rate episodes noted. No ventricular high rate episodes noted. Medications; Lopressor, ASA, Elliquis. See scanned report. Office pacemaker f/u 04/01/2025. Biotronik remote due 6 months. Shanna Almaguer RN us Maye Castro MD [facility] PROCEDURES Final Result from Last 3 Months Insurance MEDICARE AET SENIOR SUPPLEMENT [facility] [id number] MEDICARE AET SENIOR SUPPLEMENT MEDICARE MEDICARE AETNA SENIOR SUPPLEMENT MEDICARE AETNA SENIOR SUPPLEMENT Advance Directives For more information, please contact: [phone] * Full Code (Latest Code Status on File) Date Activated Date Inactivated Comments 09/05/2019 6:41 PM 08/01/2021 11:04 PM * Full Code Date Activated Date Inactivated Comments 08/28/2019 12:36 PM 09/04/2019 6:57 PM Care Teams Senior Ui Designer Relationship Specialty Start Date End Date Davidson Arellano MD PCP - General 06/13/11
--- OUTSIDE RECORDS SUMMARY | 2025-04-10 09:53 | XMS_ITS | Clinical Summary ---
Author Organization [facility] Address [address] [facility], [place] [address] Phone Care Team Providers Care Scratch Polisher Name Role Phone Lokesh Levy MD Unavailable Davidson Arellano MD Primary Care Provider Allergies No known active allergies Medications Aspirin 81 MG Tablet Take 81 mg by mouth daily. Active [place]-3 Fatty Acids (FISH OIL) 1200 MG Capsule [...] Comments Blood Pressure 132/84 07/24/2024 9:59 AM TIPPLE MECHANIC Pulse 78 07/24/2024 9:59 AM TIPPLE MECHANIC Temperature 36.6 C (97.9 F) 07/24/2024 9:59 AM TIPPLE MECHANIC Respiratory Rate 14 07/24/2024 9:59 AM TIPPLE MECHANIC Oxygen Saturation 98% 07/24/2024 9:59 AM TIPPLE MECHANIC Inhaled Oxygen Concentration - - Weight 99.5 kg (219 lb 4.8 oz) 07/24/2024 9:59 A M TIPPLE MECHANIC Height 176.5 cm (5' 9.5) 07/24/2024 9:59 AM TIPPLE MECHANIC Body Mass Index 31.92 07/24/2024 9:59 AM TIPPLE MECHANIC Plan of Treatment Upcoming Encounters Date Type Department Care Team (Late st Contact Info) Description 07/24/2025 10:00 AM TIPPLE MECHANIC Office Visit [facility] - Pulmonology & Sleep Medicine [facility] [address] [place] [address] Lokesh Levy MD [address] [place] [address] Health Maintenance Due Date Last Done Comments Hepatitis C Virus (HCV) Screening 1935 TdaP Immunization 1935 Respiratory Syncytial Virus (RSV) Immunization (Adult) (1 - 1-dose 75+ series) 2012 Influenza Immunization (#1) 03/09/202504/08, 05/09/2023, 04/25/2022, Additional history exists SARS-COV-2 Immunization ( season) 2025 05/10/2021, 10/30/2020, 09/01/2020, Additional history exists Pneumococcal [...] Insurance MEDICARE AETNA SENIOR SUPPLEMENTAL Care Teams Scratch Polisher Relationship Specialty Start Date End Date Davidson Arellano MD [address] [place] [address] PCP - General Internal Medicine 03/17/16 Lokesh Levy MD [address] [facility] [place] [address] Consulting Physician Pulmonary Disease 03/16/16
--- OUTSIDE RECORDS SUMMARY | 2025-04-10 09:53 | XMS_ITS | Clinical Summary ---
Author Organization [facility] Address [address] [place] [address] Care Team Providers Care Director Of Operations For Therapy Name Role Phone Davidson Arellano MD Primary Care Provider [phone] Allergies No known active allergies Medications allopurinoL [...] 81 mg by mouth daily. Active Fish Oil-Joppa-3 Fatty Acids 360-1,200 mg Capsule Take 1 [...] Encounters Date Type Department Care Team Description 03/24/2025 External Device Data [facility]STRACTION Provider, Abstract 03/24/2025 External Device Data [facility] Provider, Abstract 02/25/2025 External Device Data [facility] Provider, Abstract 02/24/2025 External Device Data [facility] Provider, Abstract 02/11/2025 1:00 PM CDT Office Visit [facility] Oncology and Hematology [facility] [address] [place] [address] Yong Dsouza MD Chronic anemia (Primary Dx) 02/11/2025 External Device Data [facility]STRACTION Provider, Abstract 02/10/2025 External Device Data [facility]STRACTION Provider, Abstract 02/05/2025 Orders Only [facility] Oncology [facility] [address] [place] [address] Yong Dsouza MD 01/21/2025 External Device Data [facility] ABSTRACTION Provider, [...] on file Legal Sex Male 11:31 AM [employer] Gender Identity Not on file Sexual Orientation Not on file Last Filed Vital Signs Vital Sign Reading Time Taken Comments Blood Pressure 164/87 02/11/2025 1:07 PM CDT Pulse 75 02/11/2025 1:04 PM CDT Temperature 36.4 C (97.6 F) 02/11/2025 1:04 PM CDT Respiratory Rate 15 02/11/2025 1:04 PM CDT Oxygen Saturation 95% 02/11/2025 1:04 PM CDT Inhaled Oxygen Concentration - - Weight 94.7 kg (208 lb 12.8 oz) 02/11/2025 1:04 PM CDT Height 177.8 cm (5' 10) 06/14/2022 11: 57 AM [employer] Body Mass Index 29.96 06/14/2022 11:57 AM [employer] Plan of Treatment Upcoming Encounters Date Type Department Care Team (Late st Contact Info) Description 08/25/2025 10:15 AM [employer] Office Visit [facility] Oncology and Hematology - [place] [address] [facility] [address] [place] [address] Yong Dsouza MD [address] [place] [address] Health Maintenance Due Date Last Done Comments DTAP/TDAP/TD VACCINES (1 - Tdap) 1954 RSV VACCINE (60+ or ) (1 - 1-dose 75+ series) 2012 INFLUENZA VACCINE (#1) 2025 4, 05/09/2023, 04/25/2022, Additional history exists PNEUMOCOCCAL VACCINE 50+ YEARS Completed 1 08/15/2014, 04/07/2014, 04/07/2014, Additional history exists ZOSTER VACCINE Completed 05/27/2019, 03/09, 07/14/2014 Procedures Procedure Name Priority Date/Time Associated Diagnosis Comments BASIC METABOLIC PANEL Routine 02/05/2025 3:53 PM CDT CBC WITH AUTODIFFERENTIAL Routine 2024 11:54 AM CDT from Last 3 Months Results * BASIC METABOLIC PANEL (02/05/2025 3:53 PM CDT) Blood us Yong Dsouza MD CHEMISTRY ORDERABLES Final Resu lt * CBC WITH AUTODIFFERENTIAL (02/05/2025 11:54 AM CDT) Blood us Yong Dsouza MD HEMATOLOGY ORDERABLES Final Res ult from Last 3 Months Insurance MEDICARE PART A AND B [employer] MEDICARE SUPP AESSI Care Teams Director Of Operations For Therapy Relationship Specialty Start Date End Date Davidson Arellano MD [address] [id number] PCP - General Internal Medicine 10/09/22
[2025-04-10 13:17] LABS: Total Protein Urine Random 181 mg/dL; Ur Ttl Prot Creatinine Ratio 2.33 mg/mg (0-0.20)
[2025-04-10 13:55] LABS: Albumin Level 3.9 g/dL (3.5-5.1); Anion Gap 9 mmol/L (4-12); Blood Urea Nitrogen 48 mg/dL (9-20); Calcium 8.7 mg/dL (8.4-10.2); Carbon Dioxide 23 mmol/L (22-30); Chloride 105 mmol/L (98-107); Estimated Glomerular Filt Rate 18; Glucose 110 mg/dL (65-110); Potassium 5.1 mmol/L (3.4-5.0); Sodium 137 mmol/L (137-145)
[2025-04-10 14:11] LABS: Parathyroid Intact 93.2 pg/mL (14.5-75.2)
== END 2025-04-10 09:48 | disposition home or self-care (01) ==
LOC: ANHGOSHLAB 09:48
PROVIDERS: PCP Internal Medicine; Visit Provider Internal Medicine Nephrology
DX: I12.9 Hypertensive chronic kidney disease with stage 1 through stage 4 chronic kidney disease, or unspecified chronic kidney disease (principal); N18.4 Chronic kidney disease, stage 4 (severe); N25.81 Secondary hyperparathyroidism of renal origin; E55.9 Vitamin D deficiency, unspecified
CPT/HCPCS: 36415; 80069; 82306; 82570; 83970; 84156